=== PATIENT | female | born 1970 | race African-American/Black ===

== ENCOUNTER → 2016-10-12 | Outpatient (CLI) | payer BC ==
--- NOTE | 2016-10-12 15:43 | EKG REPORT ---
SEVERITY:- ABNORMAL ECG - SINUS RHYTHM PROBABLE LEFT VENTRICULAR HYPERTROPHY : Confirmed by: Rhonda Pabon 12-Oct-2016 15:42:48
== END ==
LOC: OD 11:13
PROVIDERS: ATTEND Family Medicine
DX: R07.2 Precordial pain (principal)
CPT/HCPCS: 93005; 93010

== ENCOUNTER 2017-10-26 14:14 | Inpatient (IN) | payer SELFPAY ==
--- NOTE | 2017-10-26 14:19 | ER Document Report ---
ED Skin Rash/Insect Bite/Abscs - General Stated Complaint: POSSIBLE ABSCESS Time Seen by Provider: 10/26/17 14:18 Notes: 47-year-old diabetic, hypertensive patient with a 3 day history of worsening abscess in the suprapubic region. Family states that it has been draining. Now turning green and having extreme foul odor. Patient became confused as well. Heart rate was elevated. Home blood sugar readings were "high". Fever at home as well. Family initially thought that her blood sugar was low so they have been giving her sugary sweets over the last couple of days up until today when they realized it was high and they gave her her regular dose of Lantus. Patient normally alert a and O 4 active. TRAVEL OUTSIDE OF THE [place] IN LAST 30 DAYS: No - HPI Patient complains to provider of: Skin rash/lesion, Tender/swollen area Onset/Duration: Gradual, Worse Quality of pain: Burning Severity: Moderate Pain Level: 3 Skin Character: Abscess - Related Data Allergies/Adverse Reactions: No Known Allergies Allergy (Verified 08/20/16 07:50) Past Medical History - General Information source: Patient, Relative - Social History Smoking Status: Never Smoker Cigarette use (# per day): No Smoking Education Provided: No Drug Abuse: None Lives with: Family Family History: Reviewed & Not Pertinent - Past Medical History Cardiac Medical History: Reports: Hx Congestive Heart Failure, Hx Heart Attack, Hx Hypertension Endocrine Medical History: Reports: Hx Diabetes Mellitus Type 2 Past Surgical History: Reports: Hx Section, Hx Cholecystectomy, Hx Hysterectomy Review of Systems - Review of Systems Constitutional: Fever EENT: No symptoms reported Cardiovascular: No symptoms reported Respiratory: No symptoms reported Gastrointestinal: No symptoms reported Genitourinary: See HPI, Other - Abscess left suprapubic area Female Genitourinary: No symptoms reported Musculoskeletal: No symptoms reported Skin: See HPI, Other - Large abscess left lower abdomen/left mons pubis area Hematologic/Lymphatic: No symptoms reported Neurological/Psychological: Confusion Physical Exam - Vital signs Interpretation: Tachycardic - General General appearance: Appears well, Alert - HEENT Head: Normocephalic, Atraumatic Eyes: Normal Pupils: PERRL Mucous membranes: Dry - Respiratory Respiratory status: No respiratory distress Chest status: Nontender Breath sounds: Normal Chest palpation: Normal - Cardiovascular Rhythm: Tachycardia Heart sounds: Normal auscultation Murmur: No - Abdominal Inspection: Other - Is a large necrotic abscess to the left mons pubis area. Necrotic with draining and foul odor. Very tender to the touch. Slight green tinge to the skin. Distension: No distension Bowel sounds: Normal Tenderness: Nontender Organomegaly: No organomegaly - Back Back: Normal, Nontender - Extremities General upper extremity: Normal inspection, Nontender, Normal color, Normal ROM , Normal temperature General lower extremity: Normal inspection, Nontender, Normal color, Normal ROM , Normal temperature, Normal weight bearing. No: Ray's sign - Neurological Neuro grossly intact: Yes Cognition: Normal Orientation: AAOx4 Dowell Coma Scale Eye Opening: Spontaneous Dowell Coma Scale Verbal: Oriented Dowell Coma Scale Motor: Obeys Commands Dowell Coma Scale Total: 15 Speech: Normal Motor strength normal: LUE, RUE, LLE, RLE Sensory: Normal - Psychological Associated symptoms: Normal affect, Normal mood - Skin Skin Temperature: Warm Skin Moisture: Dry Skin Color: Other - Abscess to the left superior mons pubic area Course - Re-evaluation Re-evalutation: 10/26/17 16:04 Patient with diabetes. Blood sugar level rate is high. Necrotic lesion left lower abdomen/suprapubic area. Appears to be gangrene versus necrotizing fasciitis. Patient will need surgical intervention. Giving IV fluid boluses, antibiotics, insulin and insulin drip. Every hour Accu-Cheks. 10/26/17 16:32 Consulted with the surgeon who is comfortable taking the patient as long as the hospitalist is comfortable managing patient afterwards. Awaiting callback from hospitalist at this time. Surgeon recommends adding clindamycin IV as well - Laboratory Result Diagrams: 10/26/17 14:26 10/26/17 14:26 Laboratory results interpreted by me: 10/26/17 10/26/17 10/26/17 14:26 14:26 14:26 MCH 25.9 L MCHC 31.5 L RDW 15.6 H Band Neutrophils % 7 H PT 16.8 H VBG pH Sodium 131.0 L Chloride 93 L BUN 42 H Creatinine 2.07 H Est GFR ( Amer) 31 L Est GFR (Non-Af Amer) 25 L Glucose 882 H* Lactic Acid Direct Bilirubin 0.6 H Alkaline Phosphatase 200 H Total Protein 5.6 L Albumin 2.8 L 10/26/17 10/26/17 14:26 14:51 MCH MCHC RDW Band Neutrophils % PT VBG pH 7.26 L Sodium Chloride BUN Creatinine Est GFR ( Amer) Est GFR (Non-Af Amer) Glucose Lactic Acid 3.2 H Direct Bilirubin Alkaline Phosphatase Total Protein Albumin - EKG Interpretation by Me EKG shows normal: Sinus rhythm, Intervals, QRS Complexes, ST-T Waves [place]/QRS: Left axis deviation When compared to previous EKG there are: No significant change Critical Care Note - Critical Care Note Total time excluding time spent on procedures (mins): 60 Comments: Hyperglycemia, sepsis, consultation with specialists Discharge - Discharge Clinical Impression: Perineal abscess, Sepsis affecting skin, Hyperglycemia, Acidosis, lactic Condition: Serious Disposition: ADMITTED INPATIENT Admitting Provider: Hospitalist Unit Admitted: IMCU - [facility] Referrals: MARIBEL SAN DO [Primary Care Provider] - Follow up as needed
[2017-10-26] MEDS ORDERED: VANCOMYCIN HCL INJ 1000 MG VIAL IV ONE (15:13)
[2017-10-26 15:14] LABS: VENOUS BLOOD BASE EXCESS -3.9 mmol/L; VENOUS BLOOD HCO3 23.8 mmol/L (20-32); VENOUS BLOOD PCO2 54.9 mmHg (35-63); VENOUS BLOOD PH 7.26 (7.30-7.42)
[2017-10-26] MEDS ORDERED: CEFTRIAXONE 2 GM/D5W RTU 2 GM/50 ML RTUPB IV ONE (15:14)
[2017-10-26] MEDS ORDERED: INSULIN REG, HUMAN 100 UNIT/ML 3 ML VIAL (PYX) IV ONE (15:15)
[2017-10-26 15:18] LABS: INTERNATIONAL RATION (INR) 1.28; PROTHROMBIN TIME 16.8 SEC (11.4-15.4)
[2017-10-26 15:19] LABS: ALANINE AMINOTRANSFERASE 27 U/L (9-52); ALBUMIN 2.8 g/dL (3.5-5.0); ALKALINE PHOSPHATASE 200 U/L (38-126); ANION GAP 13 (5-19); ASPARTATE AMINO TRANSFERASE 15 U/L (14-36); BILIRUBIN,DIRECT 0.6 mg/dL (0.0-0.4); BILIRUBIN,TOTAL 0.7 mg/dL (0.2-1.3); BLOOD UREA NITROGEN 42 mg/dL (7-20); CALCIUM 9.9 mg/dL (8.4-10.2); CARBON DIOXIDE 25 mmol/L (22-30); CHLORIDE 93 mmol/L (98-107); POTASSIUM 4.2 mmol/L (3.6-5.0); TOTAL PROTEIN 5.6 g/dL (6.3-8.2)
[2017-10-26] MEDS: NORMAL SALINE 1000 ML 1,000 ML IV PRN ×2 (15:21→16:29)
[2017-10-26 15:32] LABS: GLUCOSE 882 mg/dL (75-110)
[2017-10-26 15:42] LABS: HEMOGLOBIN 12.6 g/dL (12.0-15.5); MEAN CORPUSCULAR HEMOGLOBIN 25.9 pg (27.0-33.4); MEAN CORPUSCULAR HGB CONC 31.5 g/dL (32.0-36.0); MEAN CORPUSCULAR VOLUME 82 fl (80-97); PLATELET COUNT 168 10^3/uL (150-450); RED BLOOD COUNT 4.86 10^6/uL (3.72-5.28); RED CELL DISTRIBUTION WIDTH 15.6 % (11.5-14.0); WHITE BLOOD COUNT 10.3 10^3/uL (4.0-10.5)
[2017-10-26] MEDS ORDERED: DEXTROSE 50%-WATER 25 GM/50 ML DISP.SYRIN IV PRN ×2 (15:59)
[2017-10-26] MEDS ORDERED: NORMAL SALINE 100 ML with INSULIN REGULAR, HUMAN 100 UNIT IV PRN ×4 (15:59→20:00)
[2017-10-26] MEDS ORDERED: DEXTROSE 40% GEL 15 GM TUBE PO PRN ×2 (15:59)
[2017-10-26] MEDS ORDERED: GLUCAGON,HUMAN RECOMB 1 MG INJ IM PRN (15:59)
[2017-10-26 16:14] LABS: ABSOLUTE LYMPHOCYTES# (MANUAL) 1.8 10^3/uL (0.5-4.7); ABSOLUTE MONOCYTES # (MANUAL) 0.4 10^3/uL (0.1-1.4); ABSOLUTE NEUTROPHILS# (MANUAL) 8.1 10^3/uL (1.7-8.2); BAND NEUTROPHILS % (MANUAL) 7 % (3-5); BASOPHILS % (MANUAL) 0 % (0-2); EOSINOPHILS % (MANUAL) 0 % (0-6); LYMPHOCYTES % (MANUAL) 17 % (13-45); MONOCYTES % (MANUAL) 4 % (3-13); NUCLEATED RED BLOOD CELLS 1 /100 WBC (0); SEGMENTED NEUTROPHILS % (MAN) 72 % (42-78); TOTAL CELLS COUNTED 100; TOXIC GRANULATION 1+
[2017-10-26 16:16] LABS: BURR CELLS 2+; PLATELET COMMENT ADEQUATE; PLATELET GIANT PRESENT; PLATELET LARGE PRESENT; POIKILOCYTOSIS 2+; POLYCHROMASIA SLIGHT
--- NOTE | 2017-10-26 16:32 | RADIOLOGY REPORT (SQ) ---
EXAM DESCRIPTION: PELVIS AP COMPLETED DATE/TIME: 10/26/2017 4:02 pm REASON FOR STUDY: forniers gangrene mons pubis COMPARISON: None. NUMBER OF VIEWS: One view TECHNIQUE: AP Pelvis LIMITATIONS: None. FINDINGS: MINERALIZATION: Normal. HIPS: No acute fracture or dislocation. No worrisome bone lesions. PELVIS AND SACRUM: No acute fracture or dislocation. No worrisome bone lesions. PUBIS AND ISCHIUM: No acute fracture. LOWER LUMBAR SPINE: No significant findings as visualized. SOFT TISSUES: Heterogeneous density is identified in the soft tissues at the level of the perineum an d in the upper thigh on the left consistent with air in the soft tissues. This presumably is related to an infectious process. Clinical correlation is recommended OTHER: No other significant finding. IMPRESSION: Heterogeneous density is identified in the soft tissues at the level of the perineum and in the upper thigh on the left consistent with air in the soft tissues. This presumably is related to an infectious process. Clinical correlation is recommended. Other findings as noted above TECHNICAL DOCUMENTATION: JOB ID: [id number] [employer]- All Rights Reserved
[2017-10-26] MEDS ORDERED: CLINDAMYCIN 900 MG/D5W RTU 50 ML IV ONE (16:33)
--- NOTE | 2017-10-26 16:41 | EKG REPORT ---
SEVERITY:- ABNORMAL ECG - SINUS RHYTHM PROBABLE LEFT ATRIAL ABNORMALITY CONSIDER ANTEROSEPTAL INFARCT : Confirmed by: Rhonda Pabon 26-Oct-2017 16:41:29
[2017-10-26] MEDS ORDERED: ONDANSETRON HCL INJ/PF 4 MG/2 ML SDV IV PRN (17:11)
[2017-10-26] MEDS ORDERED: NORMAL SALINE 1000 ML 1,000 ML IV PRN (17:11)
[2017-10-26] MEDS ORDERED: ACETAMINOPHEN 325 MG TABLET PO PRN (17:11)
[2017-10-26] MEDS ORDERED: IPRATROPIUM/ALBUTEROL 0.5-2.5 MG/3 ML AMPUL NEB PRN (17:11)
[2017-10-26] MEDS ORDERED: ONDANSETRON 4 MG TAB.RAPDIS PO PRN (17:11)
--- NOTE | 2017-10-26 17:25 | PDOC CONSULTATION ---
History of Present Illness Admission Date/PCP: MARIBEL SAN DO History of Present Illness: MADDIE LAWSON is a 47 year old female with diabetes who has noted a suprapubic abscess for the past 3 weeks. She began to have worsening of this abscess with discoloration and foul-smelling drainage. She was having fevers as well. She was apparently active until today when she had generalized malaise and weakness and she was subsequently brought in to the emergency room. She has been very drowsy but arousable. Patient was noted with mild tachycardia and blood glucose of 800. She was given IV fluids and IV insulin. Past Medical History Cardiac Medical History: Reports: Congestive Heart Failure, Myocardial Infarction, Hypertension Endocrine Medical History: Reports: Diabetes Mellitus Type 2 Past Surgical History Past Surgical History: Reports: Section, Cholecystectomy, Hysterectomy Social History Lives with: Family Smoking Status: Never Smoker Family History Family History: Reviewed & Not Pertinent Parental Family History Reviewed: No Children Family History Reviewed: No Sibling(s) Family History Reviewed.: No Medication/Allergy Allergies/Adverse Reactions: No Known Allergies Allergy (Verified 08/20/16 07:50) Physical Exam Vital Signs: Temp Pulse Resp BP Pulse Ox 14 118/76 96 10/26/17 17:00 10/26/17 16:00 10/26/17 17:00 Intake & Output 10/25/17 10/26/17 10/27/17 06:59 06:59 06:59 Weight 175.3 kg General appearance: PRESENT: morbidly obese, other - Lethargic but arousable. Obeys commands. Not able to provide a good history. Eye exam: PRESENT: conjunctiva pink Neck exam: PRESENT: other - Supple. Respiratory exam: PRESENT: clear to auscultation ashok Cardiovascular exam: PRESENT: tachycardia GI/Abdominal exam: PRESENT: other - Soft, morbidly obese and difficult to tell whether she is distended. At the suprapubic region she has a wide area of dark discoloration with blistering of the skin. With tenderness to palpation and underlying fluctuance. This process does not appear to extend beyond the groin crease. And it does not appear to extend above the umbilicus. Results Laboratory Results: 10/26/17 14:26 10/26/17 14:26 10/26/17 10/26/17 10/26/17 14:26 14:26 14:26 WBC 10.3 RBC 4.86 Hgb 12.6 Hct 40.0 MCV 82 MCH 25.9 L MCHC 31.5 L RDW 15.6 H Plt Count 168 Seg Neutrophils % Not Reportable Lymphocytes % Not Reportable Monocytes % Not Reportable Eosinophils % Not Reportable Basophils % Not Reportable Absolute Neutrophils Not Reportable Absolute Lymphocytes Not Reportable Absolute Monocytes Not Reportable Absolute Eosinophils Not Reportable Absolute Basophils Not Reportable VBG pH VBG pCO2 VBG HCO3 VBG Base Excess Sodium 131.0 L Potassium 4.2 Chloride 93 L Carbon Dioxide 25 Anion Gap 13 BUN 42 H Creatinine 2.07 H Est GFR ( Amer) 31 L Est GFR (Non-Af Amer) 25 L Glucose 882 H* Lactic Acid 3.2 H Calcium 9.9 Total Bilirubin 0.7 AST 15 ALT 27 Alkaline Phosphatase 200 H Total Protein 5.6 L Albumin 2.8 L 10/26/17 14:51 WBC RBC Hgb Hct MCV MCH MCHC RDW Plt Count Seg Neutrophils % Lymphocytes % Monocytes % Eosinophils % Basophils % Absolute Neutrophils Absolute Lymphocytes Absolute Monocytes Absolute Eosinophils Absolute Basophils VBG pH 7.26 L VBG pCO2 54.9 VBG HCO3 23.8 VBG Base Excess -3.9 Sodium Potassium Chloride Carbon Dioxide Anion Gap BUN Creatinine Est GFR ( Amer) Est GFR (Non-Af Amer) Glucose Lactic Acid Calcium Total Bilirubin AST ALT Alkaline Phosphatase Total Protein Albumin Impressions: Pelvis X-Ray 10/26/17 15:14 IMPRESSION: Heterogeneous density is identified in the soft tissues at the level of the perineum and in the upper thigh on the left consistent with air in the soft tissues. This presumably is related to an infectious process. Clinical correlation is recommended. Other findings as noted above Assessment & Plan - Diagnosis (1) Suprapubic abscess Is this a current diagnosis for this admission?: Yes Plan: Patient with evidence of sepsis. Unsure whether she has necrotizing fasciitis. I will take the patient to the operating room for debridement. I have discussed with the risk and benefits of the procedure including risk of bleeding infection prolonged wound healing and possibility of requiring additional surgeries. He understands and agrees to proceed. Will resuscitate patient with IV fluids, IV antibiotics and get her glucose down to reasonable numbers prior to surgery.
[2017-10-26] MEDS ORDERED: VANCOMYCIN HCL 0 MG in DEXTROSE 5%-WATER 250 ML IV NR (17:30)
[2017-10-26] MEDS ORDERED: MORPHINE SULFATE 10 MG/ML INJ IV PRN (17:33)
--- NOTE | 2017-10-26 17:48 | PDOC H&P ---
History of Present Illness Admission Date/PCP: MARIBEL SAN DO Patient complains of: Abscess in the suprapubic region. History of Present Illness: MADDIE LAWSON is a 47 year old female who has a history of diabetes, hypertension, hypothyroidism as well as coronary artery disease who presents with a three-week history of a boil on her suprapubic area. Over the last 3 weeks is gotten worse over the last 2 days began to drain purulent material. She has had some fevers and chills for the last 2 days. the patient's sister reports that she recently took a course of prednisone for her arthritis. The patient is confused at this time and she does have a blood sugar of over 800. She has had complaints of pain and over the last several days has had worsening smell from the purulent drainage from her suprapubic area. The patient when she presented was noted to have tachycardia and ultimately low blood pressures that responded to IV fluids consistent with sepsis. Past Medical History Cardiac Medical History: Reports: Congestive Heart Failure, Coronary Artery Disease, Myocardial Infarction, Hypertension Pulmonary Medical History: Reports: None EENT Medical History: Reports: None Neurological Medical History: Reports: None Endocrine Medical History: Reports: Diabetes Mellitus Type 2, Hypothyroidism Renal/ Medical History: Reports: None Malignancy Medical History: Reports: None GI Medical History: Reports: None Musculoskeltal Medical History: Reports: Arthritis Skin Medical History: Reports: None Psychiatric Medical History: Reports: None Traumatic Medical History: Reports: None Hematology: Reports: None Infectious Medical History: Reports: None Past Surgical History Past Surgical History: Reports: Section, Cholecystectomy, Hysterectomy Social History Information Source: Relative Lives with: Family Smoking Status: Never Smoker Frequency of Alcohol Use: None Hx Recreational Drug Use: No Drugs: None Hx Prescription Drug Abuse: No - Advance Directive Resuscitation Status: Full Code Surrogate healthcare decision maker:: Her Family History Family History: Father at age 57 from coronary artery disease. Mother 72 and alive. She has hypertension, diabetes mellitus, coronary artery disease. Parental Family History Reviewed: Yes Children Family History Reviewed: No Sibling(s) Family History Reviewed.: No Medication/Allergy Allergies/Adverse Reactions: No Known Allergies Allergy (Verified 08/20/16 07:50) Review of Systems Constitutional: PRESENT: chills, fever(s). ABSENT: headache(s), weight gain, weight loss Eyes: ABSENT: visual disturbances Ears: ABSENT: hearing changes Cardiovascular: ABSENT: chest pain, dyspnea on exertion, edema, orthropnea, palpitations Respiratory: ABSENT: cough, hemoptysis Gastrointestinal: ABSENT: abdominal pain, constipation, diarrhea, hematemesis, hematochezia, nausea, vomiting Musculoskeletal: ABSENT: joint swelling Integumentary: PRESENT: as per HPI Neurological: PRESENT: confusion, weakness Endocrine: PRESENT: polydipsia, polyuria Hematologic/Lymphatic: ABSENT: easy bleeding, easy bruising Physical Exam Vital Signs: Temp Pulse Resp BP Pulse Ox 14 118/76 96 10/26/17 17:00 10/26/17 16:00 10/26/17 17:00 Intake & Output 10/25/17 10/26/17 10/27/17 06:59 06:59 06:59 Weight 175.3 kg General appearance: PRESENT: no acute distress, morbidly obese Head exam: PRESENT: atraumatic, normocephalic Eye exam: PRESENT: conjunctiva pink, EOMI, PERRLA. ABSENT: scleral icterus Ear exam: PRESENT: normal external ear exam Mouth exam: PRESENT: dry mucosa Neck exam: ABSENT: carotid bruit, JVD, lymphadenopathy, thyromegaly Respiratory exam: PRESENT: clear to auscultation ashok. ABSENT: rales, rhonchi, wheezes Cardiovascular exam: PRESENT: RRR. ABSENT: diastolic murmur, rubs, systolic murmur Pulses: PRESENT: normal dorsalis pedis pul Vascular exam: PRESENT: normal capillary refill GI/Abdominal exam: PRESENT: normal bowel sounds, soft, tenderness - Tenderness in the suprapubic area. ABSENT: distended, guarding, mass, organolmegaly, rebound Rectal exam: PRESENT: deferred Extremities exam: ABSENT: calf tenderness, clubbing, pedal edema Neurological exam: PRESENT: altered, awake, oriented to person, oriented to place, oriented to time, oriented to situation, CN II-XII grossly intact. ABSENT: motor sensory deficit Psychiatric exam: PRESENT: flat affect Skin exam: PRESENT: erythema - In the left suprapubic area, other - Erythematous dark colored area of the suprapubic area worse on the left. Results Laboratory Results: 10/26/17 14:26 10/26/17 14:26 10/26/17 10/26/17 10/26/17 14:26 14:26 14:26 WBC 10.3 RBC 4.86 Hgb 12.6 Hct 40.0 MCV 82 MCH 25.9 L MCHC 31.5 L RDW 15.6 H Plt Count 168 Seg Neutrophils % Not Reportable Lymphocytes % Not Reportable Monocytes % Not Reportable Eosinophils % Not Reportable Basophils % Not Reportable Absolute Neutrophils Not Reportable Absolute Lymphocytes Not Reportable Absolute Monocytes Not Reportable Absolute Eosinophils Not Reportable Absolute Basophils Not Reportable VBG pH VBG pCO2 VBG HCO3 VBG Base Excess Sodium 131.0 L Potassium 4.2 Chloride 93 L Carbon Dioxide 25 Anion Gap 13 BUN 42 H Creatinine 2.07 H Est GFR ( Amer) 31 L Est GFR (Non-Af Amer) 25 L Glucose 882 H* Lactic Acid 3.2 H Calcium 9.9 Total Bilirubin 0.7 AST 15 ALT 27 Alkaline Phosphatase 200 H Total Protein 5.6 L Albumin 2.8 L 10/26/17 14:51 WBC RBC Hgb Hct MCV MCH MCHC RDW Plt Count Seg Neutrophils % Lymphocytes % Monocytes % Eosinophils % Basophils % Absolute Neutrophils Absolute Lymphocytes Absolute Monocytes Absolute Eosinophils Absolute Basophils VBG pH 7.26 L VBG pCO2 54.9 VBG HCO3 23.8 VBG Base Excess -3.9 Sodium Potassium Chloride Carbon Dioxide Anion Gap BUN Creatinine Est GFR ( Amer) Est GFR (Non-Af Amer) Glucose Lactic Acid Calcium Total Bilirubin AST ALT Alkaline Phosphatase Total Protein Albumin Impressions: Pelvis X-Ray 10/26/17 15:14 IMPRESSION: Heterogeneous density is identified in the soft tissues at the level of the perineum and in the upper thigh on the left consistent with air in the soft tissues. This presumably is related to an infectious process. Clinical correlation is recommended. Other findings as noted above Assessment & Plan - Diagnosis (1) Sepsis affecting skin Is this a current diagnosis for this admission?: Yes Plan: The patient had tachycardia, fever and relatively low blood pressure. This has responded IV fluids. She appears to have an abscess versus gangrene of the suprapubic area. Will treat with vancomycin, Zosyn and clindamycin. Surgery has been consulted. Blood cultures have been obtained. (2) Suprapubic abscess Is this a current diagnosis for this admission?: Yes Plan: We will treat with the antibiotics as per above. General surgery has been consulted and will be taking the patient to the operating room tonight. (3) Diabetes Is this a current diagnosis for this admission?: Yes Plan: The patient has blood sugars over 800 but does not have diabetic ketoacidosis. Patient has been started on insulin drip and will continue with that until we can get her blood sugars down to more reasonable level. Anesthesia has requested that we have the blood sugars less than 400 prior to surgery. She has IV fluids going aggressively. We will also give Lantus 60 units subcu now. The patient normally uses 36 units of Lantus daily. (4) Hypertension Is this a current diagnosis for this admission?: Yes Plan: The patient normally takes valsartan HCTZ, and clonidine. Will hold those for now given her infection and will restart those back when her blood pressures start to become elevated. (5) Hypothyroidism Is this a current diagnosis for this admission?: Yes Plan: We will continue with her outpatient Synthroid dose. - Time Time Spent: 50 to 70 Minutes - Inpatient Certification Medical Necessity: Need For IV Fluids, Need for IV Antibiotics
[2017-10-26] MEDS ORDERED: INSULIN REG, HUMAN 100 UNIT/ML 3 ML VIAL (PYX) ONE ×2 (18:32→21:45)
[2017-10-26 21:16] LABS: ANION GAP 13 (5-19); BLOOD UREA NITROGEN 41 mg/dL (7-20); CALCIUM 9.3 mg/dL (8.4-10.2); CARBON DIOXIDE 22 mmol/L (22-30); CHLORIDE 99 mmol/L (98-107); SODIUM 133.6 mmol/L (137-145)
[2017-10-26 21:31] LABS: GLUCOSE 616 mg/dL (75-110); POTASSIUM 4.3 mmol/L (3.6-5.0)
[2017-10-26] MEDS: CLINDAMYCIN 600 MG/D5W RTU 600 MG/50 ML RTUPB IV SCH (21:49)
[2017-10-26] MEDS ORDERED: BUPIVACAINE HCL 0.25 % INJ/PF (2.5 MG/1 ML) 30 ML VIAL ONE (21:50)
[2017-10-26] MEDS ORDERED: HYDROMORPHONE HCL INJ/PF 2 MG/ML AMPULE ONE ×2 (21:54)
[2017-10-26] MEDS: PIPERACILLIN SODIUM/TAZOBACTAM 3.375 GM in NORMAL SALINE 100 ML IV SCH (21:54)
[2017-10-26] MEDS ORDERED: PROPOFOL INJ 200 MG/20 ML VIAL IV ONE (21:54)
[2017-10-26] MEDS ORDERED: EPHEDRINE SULFATE INJ 50 MG/1 ML AMPULE ONE (21:54)
[2017-10-26] MEDS ORDERED: FAMOTIDINE 20 MG TABLET PO SCH (22:00)
[2017-10-26] MEDS ORDERED: INSULIN GLARGINE,HUM.REC.ANLOG 300 UNIT/3 ML INSULN.PEN SUBCUT SCH ×2 (22:00)
[2017-10-27] MEDS ORDERED: MIDAZOLAM 2 MG/2 ML INJ ONE ×2 (00:36→10:49)
--- NOTE | 2017-10-27 00:59 | Operative Report ---
Operative Report DATE OF SURGERY: 10/27/17 PREOPERATIVE DIAGNOSIS: Suprapubic abscess, severe hyperglycemia with critical need for central venous access POSTOPERATIVE DIAGNOSIS: Necrotizing fasciitis. severe hyperglycemia, critical need for central venous access OPERATION: Excisional debridement of suprapubic region and left upper thigh. Right subclavian triple-lumen central venous catheter placement SURGEON: JUAN NATARAJAN ANESTHESIA: GA TISSUE REMOVED OR ALTERED: Necrotic skin excised from the suprapubic region and the left upper thigh. Pus laden fat and fascia excised and submitted to microbiology for Gram stain and culture. COMPLICATIONS: None ESTIMATED BLOOD LOSS: 200 cc INTRAOPERATIVE FINDINGS: Pus laden fat with overlying necrotic skin and necrotic fascia of the left adductor muscle. About 13 x 4 cm region of skin necrosis at the left suprapubic region. And about 13 x 3 cm region of skin necrosis at the left upper thigh just below the groin crease. Extensive subcutaneous fat necrosis and fascial necrosis tracking from the lower abdomen and along the left adductor muscle. PROCEDURE: Informed consent was obtained. Patient was brought to the operating room placed on the operating table in supine position. After satisfactory induction of general anesthesia patient's right chest and neck were prepped and draped in usual sterile fashion. The right subclavian vein was entered and the blood aspirated was dark and nonpulsatile. Guidewire was placed inducing ventricular ectopy which stopped upon withdrawal of the guidewire. triple-lumen central venous catheter was placed via the Seldinger technique. It withdrew blood and flushed easily. It was sutured in place. Dressings were applied Patient was placed in a lithotomy position and her lower abdomen and perineum and upper thigh were prepped and draped in usual sterile fashion. Patient was morbidly obese and upon retraction of her pannus it became evident that she had a necrotic process involving the left suprapubic region extending to the left vulva region as well as necrotic process at the upper inner thigh just below her groin crease. The necrotic region of her left suprapubic region extending to the mons and left vulva was excised using electrocautery. I excised further back peripherally until I reached viable skin. There was underlying extensive pus laden necrotic fat that was excised. Dissection was carried down deeper where I encountered dusky jenkins pus laden fascia that was sharply debrided. The process extended to the left inner upper thigh. The process also extended to the left para vulvar region where there was a small about 2 x 1 cm region of skin necrosis which was sharply excised going to viable edges. There was region of necrotic skin at the inner upper thigh that was excised using scissors as well as electrocautery. Again underlying this necrotic skin was pus laden necrotic fat that was excised. The necrotic tissue was followed down to the adductor muscle fascia that was necrotic as well. All of the necrotic tissue was sharply debrided a thorough exploration was performed to make sure that it was not tracking further down the leg nor further up the abdomen. Bleeding points were controlled with electrocautery. All necrotic tissue was debrided. The wound was copiously irrigated
[2017-10-27] MEDS ORDERED: NORMAL SALINE 1000 ML 1,000 ML IV PRN (01:04)
[2017-10-27] MEDS ORDERED: PHARMACY COMMUNICATION ORDER MC NR (01:15)
[2017-10-27] MEDS ORDERED: PROPOFOL 100 ML IV ONE (01:24)
[2017-10-27] MEDS ORDERED: PROPOFOL 100 ML IV PRN (01:44)
[2017-10-27] MEDS ORDERED: DEXTROSE 40% GEL 15 GM TUBE NG PRN ×2 (02:00)
[2017-10-27] MEDS ORDERED: ONDANSETRON 4 MG TAB.RAPDIS NG PRN (02:00)
--- NOTE | 2017-10-27 02:00 | PDOC PROGRESS REPORT ---
Subjective Progress Note for:: 10/27/17 Subjective:: Intubated and sedated Reason For Visit: GANGRENE OF PANNUS Physical Exam Vital Signs: Temp Pulse Resp BP Pulse Ox 21 H 123/65 100 10/26/17 21:50 10/26/17 19:01 10/26/17 21:50 Intake & Output 10/25/17 10/26/17 10/27/17 06:59 06:59 06:59 Intake Total 2500 Output Total 500 Balance 2000 General appearance: PRESENT: no acute distress Respiratory exam: PRESENT: clear to auscultation ashok Cardiovascular exam: PRESENT: tachycardia GI/Abdominal exam: PRESENT: other - Soft and nondistended. Her left groin and suprapubic region dressings are intact. There is no erythema nor induration in the surrounding regions. No blistering or discoloration of her left leg. Results Laboratory Results: 10/26/17 20:45 10/26/17 20:45 Sodium 133.6 L Potassium 4.3 Chloride 99 Carbon Dioxide 22 Anion Gap 13 BUN 41 H Creatinine 1.98 H Est GFR ( Amer) 32 L Est GFR (Non-Af Amer) 27 L Glucose 616 H* Calcium 9.3 Impressions: Pelvis X-Ray 10/26/17 15:14 IMPRESSION: Heterogeneous density is identified in the soft tissues at the level of the perineum and in the upper thigh on the left consistent with air in the soft tissues. This presumably is related to an infectious process. Clinical correlation is recommended. Other findings as noted above Assessment & Plan - Diagnosis (1) Suprapubic abscess Is this a current diagnosis for this admission?: Yes (2) Necrotizing fasciitis Is this a current diagnosis for this admission?: Yes Plan: Status post extensive debridement. Will keep patient intubated. Continue broad -spectrum antibiotics. Await culture results. Will reevaluate the wound tomorrow. Defer to hospitalist for medical management of her hyperglycemia.
--- NOTE | 2017-10-27 02:05 | RADIOLOGY REPORT (SQ) ---
EXAM DESCRIPTION: CHEST SINGLE VIEW CLINICAL HISTORY: 47 years, Female, check line placement COMPARISON: August 20, 2016 NUMBER OF VIEWS: 1 LIMITATIONS: None. FINDINGS: Moderate lung volume, mild enlargement of the cardiac silhouette, small streakiness of the right upper lobe, pulmonary vascular congestion, adequate appearing endotracheal tube, likely adequate enteric tube obscured distally, right subclavian central line tip at cavoatrial junction, no pneumothorax, and mild osteoarthritis. IMPRESSION: Small atelectasis-pneumonia right upper lobe. Lines and tubes. 2010 [employer] All Rights Reserved
[2017-10-27 02:31] LABS: ANION GAP 11 (5-19); BLOOD UREA NITROGEN 40 mg/dL (7-20); CALCIUM 8.7 mg/dL (8.4-10.2); CARBON DIOXIDE 22 mmol/L (22-30); CHLORIDE 106 mmol/L (98-107); GLUCOSE 332 mg/dL (75-110); POTASSIUM 3.9 mmol/L (3.6-5.0)
[2017-10-27 02:34] LABS: HEMATOCRIT 33.2 % (36.0-47.0); HEMOGLOBIN 10.7 g/dL (12.0-15.5); MEAN CORPUSCULAR HEMOGLOBIN 25.5 pg (27.0-33.4); MEAN CORPUSCULAR HGB CONC 32.3 g/dL (32.0-36.0); MEAN CORPUSCULAR VOLUME 79 fl (80-97); PLATELET COUNT 148 10^3/uL (150-450); RED CELL DISTRIBUTION WIDTH 15.9 % (11.5-14.0); WHITE BLOOD COUNT 12.5 10^3/uL (4.0-10.5)
[2017-10-27] MEDS ORDERED: INFLUENZA ADLT QUAD (36MOS+) 2017-18 VAC 0.5 ML SYR IM PRN (02:39)
--- NOTE | 2017-10-27 02:47 | RADIOLOGY REPORT (SQ) ---
EXAM DESCRIPTION: KUB/ABDOMEN (SINGLE VIEW) CLINICAL HISTORY: 47 years, Female, Check Placement of NG Tube COMPARISON: CR, chest, same day. NUMBER OF VIEWS: 1. LIMITATIONS: Targeted left upper abdomen radiograph. FINDINGS: Tip and proximal port of an enteric tube overlie the left paracentral abdomen appearing adequate. IMPRESSION: Enteric tube. 2010 [employer]- All Rights Reserved
[2017-10-27] MEDS: PIPERACILLIN SODIUM/TAZOBACTAM 3.375 GM in NORMAL SALINE 100 ML IV SCH ×3 (02:53→14:07)
[2017-10-27] MEDS: VANCOMYCIN HCL 1,000 MG in DEXTROSE 5%-WATER 250 ML IV SCH ×2 (03:27→14:07)
[2017-10-27 03:41] LABS: APPEARANCE,URINE CLOUDY; BILIRUBIN,URINE NEGATIVE (NEGATIVE); COLOR,URINE AMBER; GLUCOSE, URINE 50 mg/dL (NEGATIVE); KETONES,URINE NEGATIVE (NEGATIVE); LEUKOCYTE ESTERASE,URINE NEGATIVE (NEGATIVE); NITRITE,URINE NEGATIVE (NEGATIVE); PROTEIN,URINE 100 mg/dL (NEGATIVE); URINE SPECIFIC GRAVITY 1.019
[2017-10-27] MEDS: NORMAL SALINE 1000 ML 1,000 ML IV PRN ×2 (05:16→06:15)
[2017-10-27] MEDS ORDERED: LEVOTHYROXINE SODIUM 0.05 MG TABLET NG SCH (06:00)
[2017-10-27] MEDS: CLINDAMYCIN 600 MG/D5W RTU 600 MG/50 ML RTUPB IV SCH ×2 (06:00→14:08)
[2017-10-27 06:36] LABS: ARTERIAL BLOOD BASE EXCESS -5.5 mmol/L; ARTERIAL BLOOD FIO2 50%; ARTERIAL BLOOD H2CO3 1.44 mmol/L (1.05-1.35); ARTERIAL BLOOD HCO3 21.3 mmol/L (20-26); ARTERIAL BLOOD O2 SATURATION 97.8 % (94-98); ARTERIAL BLOOD PCO2 47.7 mmHg (35-45); ARTERIAL BLOOD PH 7.27 (7.35-7.45); ARTERIAL BLOOD PO2 120.2 mmHg (80-100); ARTERIAL BLOOD TOTAL CO2 22.8 mmol/L (21-25)
[2017-10-27 06:39] LABS: HEMATOCRIT 30.7 % (36.0-47.0); HEMOGLOBIN 9.8 g/dL (12.0-15.5); MEAN CORPUSCULAR HEMOGLOBIN 25.2 pg (27.0-33.4); MEAN CORPUSCULAR HGB CONC 32.1 g/dL (32.0-36.0); MEAN CORPUSCULAR VOLUME 79 fl (80-97); PLATELET COUNT 144 10^3/uL (150-450); RED CELL DISTRIBUTION WIDTH 15.7 % (11.5-14.0); WHITE BLOOD COUNT 12.5 10^3/uL (4.0-10.5)
[2017-10-27 06:49] LABS: ANION GAP 10 (5-19); BLOOD UREA NITROGEN 40 mg/dL (7-20); CALCIUM 8.1 mg/dL (8.4-10.2); CARBON DIOXIDE 21 mmol/L (22-30); CHLORIDE 108 mmol/L (98-107); GLUCOSE 222 mg/dL (75-110); MAGNESIUM 1.8 mg/dL (1.6-2.3)
[2017-10-27] MEDS ORDERED: INSULIN REG, HUMAN 100 UNIT/ML 3 ML VIAL (PYX) ONE (07:09)
[2017-10-27 07:39] LABS: ABSOLUTE LYMPHOCYTES# (MANUAL) 2.3 10^3/uL (0.5-4.7); ABSOLUTE MONOCYTES # (MANUAL) 1.1 10^3/uL (0.1-1.4); BAND NEUTROPHILS % (MANUAL) 8 % (3-5); BASOPHILS % (MANUAL) 0 % (0-2); EOSINOPHILS % (MANUAL) 1 % (0-6); LYMPHOCYTES % (MANUAL) 16 % (13-45); MONOCYTES % (MANUAL) 9 % (3-13); SEGMENTED NEUTROPHILS % (MAN) 64 % (42-78); TOTAL CELLS COUNTED 100
[2017-10-27 07:40] LABS: ANISOCYTOSIS SLIGHT
[2017-10-27 07:41] LABS: BURR CELLS 1+; HYPOCHROMASIA SLIGHT; PLATELET COMMENT DECREASED; POIKILOCYTOSIS 1+
--- NOTE | 2017-10-27 09:23 | PDOC PROGRESS REPORT ---
Subjective Progress Note for:: 10/27/17 Reason For Visit: GANGRENE OF PANNUS Physical Exam Vital Signs: Temp Pulse Resp BP Pulse Ox 99.7 F 116 H 22 H 101/61 100 10/27/17 08:00 10/27/17 08:00 10/27/17 08:00 10/27/17 08:00 10/27/17 08:00 Intake & Output 10/26/17 10/27/17 10/28/17 06:59 06:59 06:59 Intake Total 6248 Output Total 2745 45 Balance 3503 -45 Weight 166.7 kg Skin exam: PRESENT: other - lower abdominal pannus and left upper thigh wounds [ resent with foul smell, discolored skin edges and graysh subcutaneous fat Results Laboratory Results: 10/27/17 06:10 10/27/17 06:10 10/26/17 10/27/17 10/27/17 20:45 02:00 02:00 WBC 12.5 H RBC 4.20 Hgb 10.7 L Hct 33.2 L MCV 79 L MCH 25.5 L MCHC 32.3 RDW 15.9 H Plt Count 148 L Seg Neutrophils % Lymphocytes % Monocytes % Eosinophils % Basophils % Absolute Neutrophils Absolute Lymphocytes Absolute Monocytes Absolute Eosinophils Absolute Basophils Carbonic Acid HCO3/H2CO3 Ratio ABG pH ABG pCO2 ABG pO2 ABG HCO3 ABG O2 Saturation ABG Base Excess FiO2 Sodium 133.6 L 139.0 Potassium 4.3 3.9 Chloride 99 106 Carbon Dioxide 22 22 Anion Gap 13 11 BUN 41 H 40 H Creatinine 1.98 H 2.04 H Est GFR ( Amer) 32 L 31 L Est GFR (Non-Af Amer) 27 L 26 L Glucose 616 H* 332 H Lactic Acid Calcium 9.3 8.7 Magnesium Urine Color Urine Appearance Urine pH Ur Specific [place] Urine Protein Urine Glucose (UA) Urine Ketones Urine Blood Urine Nitrite Ur Leukocyte Esterase Urine WBC (Auto) Urine RBC (Auto) 10/27/17 10/27/17 10/27/17 02:50 06:10 06:10 WBC 12.5 H RBC 3.90 Hgb 9.8 L Hct 30.7 L MCV 79 L MCH 25.2 L MCHC 32.1 RDW 15.7 H Plt Count 144 L Seg Neutrophils % Not Reportable Lymphocytes % Not Reportable Monocytes % Not Reportable Eosinophils % Not Reportable Basophils % Not Reportable Absolute Neutrophils Not Reportable Absolute Lymphocytes Not Reportable Absolute Monocytes Not Reportable Absolute Eosinophils Not Reportable Absolute Basophils Not Reportable Carbonic Acid HCO3/H2CO3 Ratio ABG pH ABG pCO2 ABG pO2 ABG HCO3 ABG O2 Saturation ABG Base Excess FiO2 Sodium 139.0 Potassium 4.0 Chloride 108 H Carbon Dioxide 21 L Anion Gap 10 BUN 40 H Creatinine 1.98 H Est GFR ( Amer) 32 L Est GFR (Non-Af Amer) 27 L Glucose 222 H Lactic Acid Calcium 8.1 L Magnesium 1.8 Urine Color ANJELICA Urine Appearance CLOUDY Urine pH 5.0 Ur Specific [place] 1.019 Urine Protein 100 H Urine Glucose (UA) 50 H Urine Ketones NEGATIVE Urine Blood MODERATE H Urine Nitrite NEGATIVE Ur Leukocyte Esterase NEGATIVE Urine WBC (Auto) 17 Urine RBC (Auto) 2 10/27/17 10/27/17 06:10 06:10 WBC RBC Hgb Hct MCV MCH MCHC RDW Plt Count Seg Neutrophils % Lymphocytes % Monocytes % Eosinophils % Basophils % Absolute Neutrophils Absolute Lymphocytes Absolute Monocytes Absolute Eosinophils Absolute Basophils Carbonic Acid 1.44 H HCO3/H2CO3 Ratio 14:1 ABG pH 7.27 L ABG pCO2 47.7 H ABG pO2 120.2 H ABG HCO3 21.3 ABG O2 Saturation 97.8 ABG Base Excess -5.5 FiO2 50% Sodium Potassium Chloride Carbon Dioxide Anion Gap BUN Creatinine Est GFR ( Amer) Est GFR (Non-Af Amer) Glucose Lactic Acid 1.4 Calcium Magnesium Urine Color Urine Appearance Urine pH Ur Specific [place] Urine Protein Urine Glucose (UA) Urine Ketones Urine Blood Urine Nitrite Ur Leukocyte Esterase Urine WBC (Auto) Urine RBC (Auto) Impressions: Pelvis X-Ray 10/26/17 15:14 IMPRESSION: Heterogeneous density is identified in the soft tissues at the level of the perineum and in the upper thigh on the left consistent with air in the soft tissues. This presumably is related to an infectious process. Clinical correlation is recommended. Other findings as noted above Chest X-Ray 10/27/17 00:00 IMPRESSION: Small atelectasis-pneumonia right upper lobe. Lines and tubes. 2010 [employer]- All Rights Reserved KUB X-Ray 10/27/17 01:03 IMPRESSION: Enteric tube. 2010 [employer]- All Rights Reserved Assessment & Plan - Diagnosis (1) Necrotizing fasciitis Is this a current diagnosis for this admission?: Yes - Plan Summary Plan Summary: take back to surgery today for additional wide debridment of left upper thigh and abdominal pannus wounds Case and procedure discussed with patient's , he understands risks and procedure and decide to proceed
[2017-10-27] MEDS ORDERED: FAMOTIDINE 20 MG TABLET NG SCH (10:00)
[2017-10-27] MEDS: MORPHINE SULFATE 10 MG/ML INJ IV PRN ×2 (10:20→14:06)
--- NOTE | 2017-10-27 10:33 | PDOC CONSULTATION ---
Consultation Consult Date: 10/27/17 Attending physician:: JEREMIE JEAN Consult reason:: sepsis/resp failure History of Present Illness Admission Date/PCP: 10/26/17 17:28 MARIBEL SAN DO History of Present Illness: MADDIE LAWSON is a 47 year old female who has a history of diabetes, hypertension, hypothyroidism as well as coronary artery disease who presents with a three-week history of a boil on her suprapubic area. Over the last 3 weeks is gotten worse over the last 2 days began to drain purulent material. She has had some fevers and chills for the last 2 days. the patient's sister reports that she recently took a course of prednisone for her arthritis. The patient is confused at this time and she does have a blood sugar of over 800. She has had complaints of pain and over the last several days has had worsening smell from the purulent drainage from her suprapubic area. The patient when she presented was noted to have tachycardia and ultimately low blood pressures that responded to IV fluids consistent with sepsis. Past Medical History Cardiac Medical History: Reports: Congestive Heart Failure, Coronary Artery Disease, Myocardial Infarction, Hypertension Pulmonary Medical History: Reports: None EENT Medical History: Reports: None Neurological Medical History: Reports: None Endocrine Medical History: Reports: Diabetes Mellitus Type 2, Hypothyroidism Renal/ Medical History: Reports: None Malignancy Medical History: Reports: None GI Medical History: Reports: None Musculoskeltal Medical History: Reports: Arthritis Skin Medical History: Reports: None Psychiatric Medical History: Reports: None Traumatic Medical History: Reports: None Hematology: Reports: None Infectious Medical History: Reports: None Past Surgical History Past Surgical History: Reports: Section, Cholecystectomy, Hysterectomy Social History Information Source: Relative, [facility] Lives with: Family Smoking Status: Never Smoker Frequency of Alcohol Use: None Hx Recreational Drug Use: No Drugs: None Hx Prescription Drug Abuse: No Do you have pets?: No Have you had any respiratory illnesses as a child?: No Have you been exposed to any sick contacts recently?: No Have you had any recent respiratory illnesses?: No Have you travelled outside of [place] in the past 12 months?: No - Advance Directive Resuscitation Status: Full Code Family History Family History: DM, Hypertension Parental Family History Reviewed: Yes Children Family History Reviewed: Yes Sibling(s) Family History Reviewed.: Yes Medication/Allergy Home Medications: No Home Medications 10/26/17 Allergies/Adverse Reactions: No Known Allergies Allergy (Verified 08/20/16 07:50) Review of Systems ROS unobtainable: Due to endotracheal tube Physical Exam Vital Signs: Temp Pulse Resp BP Pulse Ox 99.7 F 116 H 22 H 101/61 100 10/27/17 08:00 10/27/17 08:00 10/27/17 08:00 10/27/17 08:00 10/27/17 08:00 Intake & Output 10/26/17 10/27/17 10/28/17 06:59 06:59 06:59 Intake Total 6248 Output Total 2745 45 Balance 3503 -45 Weight 166.7 kg General appearance: PRESENT: no acute distress, disheveled, morbidly obese, well -developed. ABSENT: cooperative, mild distress, obese, severe distress, thin Head exam: PRESENT: atraumatic, normocephalic Eye exam: PRESENT: conjunctiva pale. ABSENT: conjunctival injection, conjunctiva pink, EOMI, nystagmus, periorbital swelling, scleral icterus Mouth exam: PRESENT: dry mucosa, neck supple, tongue midline, other - ET tube. ABSENT: laceration, moist Neck exam: ABSENT: carotid bruit, JVD, lymphadenopathy, thyromegaly, tracheal deviation, tracheostomy Respiratory exam: PRESENT: decreased breath sounds, prolonged expiratory phas, rhonchi, symmetrical, unlabored. ABSENT: accessory muscle use, chest wall tenderness, clear to auscultation ashok, crackles, retraction Cardiovascular exam: PRESENT: RRR, +S1, +S2 Pulses: PRESENT: normal radial pulses GI/Abdominal exam: PRESENT: other Extremities exam: ABSENT: clubbing, joint swelling Musculoskeletal exam: ABSENT: deformity, dislocation Neurological exam: ABSENT: alert, awake Skin exam: PRESENT: dry, warm, other - necrotizing fashitis Results Laboratory Results: 10/27/17 06:10 10/27/17 06:10 10/26/17 10/27/17 10/27/17 20:45 02:00 02:00 WBC 12.5 H RBC 4.20 Hgb 10.7 L Hct 33.2 L MCV 79 L MCH 25.5 L MCHC 32.3 RDW 15.9 H Plt Count 148 L Seg Neutrophils % Lymphocytes % Monocytes % Eosinophils % Basophils % Absolute Neutrophils Absolute Lymphocytes Absolute Monocytes Absolute Eosinophils Absolute Basophils Carbonic Acid HCO3/H2CO3 Ratio ABG pH ABG pCO2 ABG pO2 ABG HCO3 ABG O2 Saturation ABG Base Excess FiO2 Sodium 133.6 L 139.0 Potassium 4.3 3.9 Chloride 99 106 Carbon Dioxide 22 22 Anion Gap 13 11 BUN 41 H 40 H Creatinine 1.98 H 2.04 H Est GFR ( Amer) 32 L 31 L Est GFR (Non-Af Amer) 27 L 26 L Glucose 616 H* 332 H Lactic Acid Calcium 9.3 8.7 Magnesium Urine Color Urine Appearance Urine pH Ur Specific [place] Urine Protein Urine Glucose (UA) Urine Ketones Urine Blood Urine Nitrite Ur Leukocyte Esterase Urine WBC (Auto) Urine RBC (Auto) 10/27/17 10/27/17 10/27/17 02:50 06:10 06:10 WBC 12.5 H RBC 3.90 Hgb 9.8 L Hct 30.7 L MCV 79 L MCH 25.2 L MCHC 32.1 RDW 15.7 H Plt Count 144 L Seg Neutrophils % Not Reportable Lymphocytes % Not Reportable Monocytes % Not Reportable Eosinophils % Not Reportable Basophils % Not Reportable Absolute Neutrophils Not Reportable Absolute Lymphocytes Not Reportable Absolute Monocytes Not Reportable Absolute Eosinophils Not Reportable Absolute Basophils Not Reportable Carbonic Acid HCO3/H2CO3 Ratio ABG pH ABG pCO2 ABG pO2 ABG HCO3 ABG O2 Saturation ABG Base Excess FiO2 Sodium 139.0 Potassium 4.0 Chloride 108 H Carbon Dioxide 21 L Anion Gap 10 BUN 40 H Creatinine 1.98 H Est GFR ( Amer) 32 L Est GFR (Non-Af Amer) 27 L Glucose 222 H Lactic Acid Calcium 8.1 L Magnesium 1.8 Urine Color ANJELICA Urine Appearance CLOUDY Urine pH 5.0 Ur Specific [place] 1.019 Urine Protein 100 H Urine Glucose (UA) 50 H Urine Ketones NEGATIVE Urine Blood MODERATE H Urine Nitrite NEGATIVE Ur Leukocyte Esterase NEGATIVE Urine WBC (Auto) 17 Urine RBC (Auto) 2 10/27/17 10/27/17 06:10 06:10 WBC RBC Hgb Hct MCV MCH MCHC RDW Plt Count Seg Neutrophils % Lymphocytes % Monocytes % Eosinophils % Basophils % Absolute Neutrophils Absolute Lymphocytes Absolute Monocytes Absolute Eosinophils Absolute Basophils Carbonic Acid 1.44 H HCO3/H2CO3 Ratio 14:1 ABG pH 7.27 L ABG pCO2 47.7 H ABG pO2 120.2 H ABG HCO3 21.3 ABG O2 Saturation 97.8 ABG Base Excess -5.5 FiO2 50% Sodium Potassium Chloride Carbon Dioxide Anion Gap BUN Creatinine Est GFR ( Amer) Est GFR (Non-Af Amer) Glucose Lactic Acid 1.4 Calcium Magnesium Urine Color Urine Appearance Urine pH Ur Specific [place] Urine Protein Urine Glucose (UA) Urine Ketones Urine Blood Urine Nitrite Ur Leukocyte Esterase Urine WBC (Auto) Urine RBC (Auto) Impressions: Pelvis X-Ray 10/26/17 15:14 IMPRESSION: Heterogeneous density is identified in the soft tissues at the level of the perineum and in the upper thigh on the left consistent with air in the soft tissues. This presumably is related to an infectious process. Clinical correlation is recommended. Other findings as noted above Chest X-Ray 10/27/17 00:00 IMPRESSION: Small atelectasis-pneumonia right upper lobe. Lines and tubes. 2010 [employer]- All Rights Reserved KUB X-Ray 10/27/17 01:03 IMPRESSION: Enteric tube. 2010 [employer]- All Rights Reserved Assessment & Plan - Diagnosis (1) Hyperglycemia Is this a current diagnosis for this admission?: Yes Plan: ssi (2) Hypertension Is this a current diagnosis for this admission?: Yes Plan: stable (3) Necrotizing fasciitis Is this a current diagnosis for this admission?: Yes Plan: per surgery (4) Sepsis affecting skin Is this a current diagnosis for this admission?: Yes (5) Suprapubic abscess Is this a current diagnosis for this admission?: Yes (6) Diabetes Is this a current diagnosis for this admission?: Yes (7) Hypothyroidism Is this a current diagnosis for this admission?: Yes - Time Total Critical Time (Minutes): 55
[2017-10-27] MEDS ORDERED: SILVER SULFADIAZINE 1% CREAM 25 GM ONE (10:44)
[2017-10-27] MEDS ORDERED: FENTANYL CITRATE INJ/PF 100 MCG/2 ML AMPUL ONE (10:48)
[2017-10-27] MEDS ORDERED: PROPOFOL INJ 200 MG/20 ML VIAL IV ONE (10:49)
[2017-10-27] MEDS ORDERED: HYDROMORPHONE HCL INJ/PF 2 MG/ML AMPULE ONE (10:49)
--- NOTE | 2017-10-27 11:40 | PDOC PROGRESS REPORT ---
Subjective Progress Note for:: 10/27/17 Subjective:: Intubated and sedated Reason For Visit: GANGRENE OF PANNUS Physical Exam Vital Signs: Temp Pulse Resp BP Pulse Ox 100.3 F 118 H 14 98/58 L 98 10/27/17 10:37 10/27/17 10:37 10/27/17 10:37 10/27/17 10:37 10/27/17 10:37 Intake & Output 10/26/17 10/27/17 10/28/17 06:59 06:59 06:59 Intake Total 6248 Output Total 2745 55 Balance 3503 -55 Weight 166.7 kg General appearance: PRESENT: no acute distress Eye exam: PRESENT: conjunctiva pink. ABSENT: scleral icterus Mouth exam: PRESENT: moist, tongue midline Neck exam: ABSENT: JVD Respiratory exam: PRESENT: clear to auscultation ashok. ABSENT: rales, rhonchi, wheezes Cardiovascular exam: PRESENT: RRR. ABSENT: diastolic murmur, rubs, systolic murmur GI/Abdominal exam: PRESENT: normal bowel sounds, soft. ABSENT: distended, guarding, mass, organolmegaly, rebound, tenderness Extremities exam: ABSENT: calf tenderness, clubbing, pedal edema Neurological exam: PRESENT: other - Intubated and sedated Psychiatric exam: PRESENT: other - Sedated Skin exam: PRESENT: other - Dressing in place in the suprapubic area Results Laboratory Results: 10/27/17 06:10 10/27/17 06:10 10/26/17 10/27/17 10/27/17 20:45 02:00 02:00 WBC 12.5 H RBC 4.20 Hgb 10.7 L Hct 33.2 L MCV 79 L MCH 25.5 L MCHC 32.3 RDW 15.9 H Plt Count 148 L Seg Neutrophils % Lymphocytes % Monocytes % Eosinophils % Basophils % Absolute Neutrophils Absolute Lymphocytes Absolute Monocytes Absolute Eosinophils Absolute Basophils Carbonic Acid HCO3/H2CO3 Ratio ABG pH ABG pCO2 ABG pO2 ABG HCO3 ABG O2 Saturation ABG Base Excess FiO2 Sodium 133.6 L 139.0 Potassium 4.3 3.9 Chloride 99 106 Carbon Dioxide 22 22 Anion Gap 13 11 BUN 41 H 40 H Creatinine 1.98 H 2.04 H Est GFR ( Amer) 32 L 31 L Est GFR (Non-Af Amer) 27 L 26 L Glucose 616 H* 332 H Lactic Acid Calcium 9.3 8.7 Magnesium Urine Color Urine Appearance Urine pH Ur Specific [place] Urine Protein Urine Glucose (UA) Urine Ketones Urine Blood Urine Nitrite Ur Leukocyte Esterase Urine WBC (Auto) Urine RBC (Auto) 10/27/17 10/27/17 10/27/17 02:50 06:10 06:10 WBC 12.5 H RBC 3.90 Hgb 9.8 L Hct 30.7 L MCV 79 L MCH 25.2 L MCHC 32.1 RDW 15.7 H Plt Count 144 L Seg Neutrophils % Not Reportable Lymphocytes % Not Reportable Monocytes % Not Reportable Eosinophils % Not Reportable Basophils % Not Reportable Absolute Neutrophils Not Reportable Absolute Lymphocytes Not Reportable Absolute Monocytes Not Reportable Absolute Eosinophils Not Reportable Absolute Basophils Not Reportable Carbonic Acid HCO3/H2CO3 Ratio ABG pH ABG pCO2 ABG pO2 ABG HCO3 ABG O2 Saturation ABG Base Excess FiO2 Sodium 139.0 Potassium 4.0 Chloride 108 H Carbon Dioxide 21 L Anion Gap 10 BUN 40 H Creatinine 1.98 H Est GFR ( Amer) 32 L Est GFR (Non-Af Amer) 27 L Glucose 222 H Lactic Acid Calcium 8.1 L Magnesium 1.8 Urine Color ANJELICA Urine Appearance CLOUDY Urine pH 5.0 Ur Specific [place] 1.019 Urine Protein 100 H Urine Glucose (UA) 50 H Urine Ketones NEGATIVE Urine Blood MODERATE H Urine Nitrite NEGATIVE Ur Leukocyte Esterase NEGATIVE Urine WBC (Auto) 17 Urine RBC (Auto) 2 10/27/17 10/27/17 06:10 06:10 WBC RBC Hgb Hct MCV MCH MCHC RDW Plt Count Seg Neutrophils % Lymphocytes % Monocytes % Eosinophils % Basophils % Absolute Neutrophils Absolute Lymphocytes Absolute Monocytes Absolute Eosinophils Absolute Basophils Carbonic Acid 1.44 H HCO3/H2CO3 Ratio 14:1 ABG pH 7.27 L ABG pCO2 47.7 H ABG pO2 120.2 H ABG HCO3 21.3 ABG O2 Saturation 97.8 ABG Base Excess -5.5 FiO2 50% Sodium Potassium Chloride Carbon Dioxide Anion Gap BUN Creatinine Est GFR ( Amer) Est GFR (Non-Af Amer) Glucose Lactic Acid 1.4 Calcium Magnesium Urine Color Urine Appearance Urine pH Ur Specific [place] Urine Protein Urine Glucose (UA) Urine Ketones Urine Blood Urine Nitrite Ur Leukocyte Esterase Urine WBC (Auto) Urine RBC (Auto) Impressions: Pelvis X-Ray 10/26/17 15:14 IMPRESSION: Heterogeneous density is identified in the soft tissues at the level of the perineum and in the upper thigh on the left consistent with air in the soft tissues. This presumably is related to an infectious process. Clinical correlation is recommended. Other findings as noted above Chest X-Ray 10/27/17 00:00 IMPRESSION: Small atelectasis-pneumonia right upper lobe. Lines and tubes. 2010 [employer]- All Rights Reserved KUB X-Ray 10/27/17 01:03 IMPRESSION: Enteric tube. 2010 [employer]- All Rights Reserved Assessment & Plan - Diagnosis (1) Sepsis affecting skin Is this a current diagnosis for this admission?: Yes Plan: The patient had tachycardia, fever and relatively low blood pressure. Patient had surgical debridement last night. Will treat with vancomycin, Zosyn and clindamycin. Blood cultures have been obtained. (2) Suprapubic abscess Is this a current diagnosis for this admission?: Yes Plan: We will treat with the antibiotics as per above. Had surgical debridement last night. (3) Diabetes Is this a current diagnosis for this admission?: Yes Plan: The patient blood sugars in a more normal range. Will continue with Lantus. Also will continue with the IV fluids. (4) Hypertension Is this a current diagnosis for this admission?: Yes Plan: The patient normally takes valsartan HCTZ, and clonidine. Will hold those for now given her infection and will restart those back when her blood pressures start to become elevated. (5) Hypothyroidism Is this a current diagnosis for this admission?: Yes Plan: We will continue with her outpatient Synthroid dose. - Time Time Spent with patient: 25-34 minutes - Inpatient Certification Medical Necessity: Need for IV Antibiotics
[2017-10-27] MEDS ORDERED: FENTANYL CITRATE INJ/PF 100 MCG/2 ML AMPUL IV PRN ×3 (11:43)
[2017-10-27] MEDS ORDERED: MORPHINE SULFATE 10 MG/ML INJ IV PRN (11:43)
[2017-10-27] MEDS ORDERED: MEPERIDINE HCL/PF INJ 25 MG/1 ML DISP.SYRIN IV PRN (11:43)
[2017-10-27] MEDS: SILVER SULFADIAZINE 1% CREAM 400 GM TP ONE ×2 (12:01→14:09)
[2017-10-27] MEDS ORDERED: NOREPINEPHRINE BITARTRATE INJ/PF 4 MG/4 ML SDV IV ONE (13:41)
--- NOTE | 2017-10-27 13:41 | Operative Report ---
Operative Report DATE OF SURGERY: 10/27/17 PREOPERATIVE DIAGNOSIS: nECROTIZINF FASCITIS LOWER ABDOMINAL PANNUS, LEFT UPPER THIGH, LEFT VULVA POSTOPERATIVE DIAGNOSIS: Same, extending to left lateral vaginal wall and left deep perineum OPERATION: Excisional debridement of suprapubic region and left upper thigh. Right subclavian triple-lumen central venous catheter placement SURGEON: PEPPER TURNER ANESTHESIA: GA TISSUE REMOVED OR ALTERED: Necrotic skin excised from the suprapubic region and the left upper thigh, left vulva, and left inner perineum. COMPLICATIONS: none ESTIMATED BLOOD LOSS: 400 cc INTRAOPERATIVE FINDINGS: see dictation PROCEDURE: Wide debridment of left lower pannus, left upper thigh, left vulva
[2017-10-27] MEDS ORDERED: PHENYLEPHRINE HCL INJ/PF 10 MG/1 ML SDV ONE (14:22)
--- NOTE | 2017-10-27 15:19 | TRANSFER SUMMARY E ---
Transfer Summary NAME: MADDIE LAWSON : 1970 AGE: 47Y ADMITTED: 10/26/2017 TRANSFERRED: 10/27/2017 FINAL DIAGNOSIS: Necrotizing fasciitis, left lower abdomen, left upper thigh and left vulva. PROCEDURE: On 10/26/2017 and 10/27/2017 the patient underwent full-thickness debridement down to fascia of the left lower abdominal pannus, left upper thigh skin, subcutaneous tissue and fascia, and left vulva. COMPLICATIONS: None. HOSPITAL COURSE: This is a morbidly obese 47-year-old female who presented to the Emergency Room with confusion, change in mental status, and an obviously infected left groin area who had a high blood sugar of above 800. The patient was taken to surgery shortly after evaluation in the Emergency Room and underwent initial debridement on 10/26/2017. Subsequently she was transferred to the ICU and remained intubated. Her urine output was good. She was maintained on IV antibiotics, Zosyn, clindamycin and Zyvox. She was left intubated and the following morning the patient presented with stable vital signs, but exam of her wound revealed foul smell and discoloration of the fatty tissue of the surgical wound as well as evidence of necrosis of the skin. She was taken back to surgery where she underwent a wider debridement of her left lower abdominal pannus extending to the flank plus left upper thigh and left vulva. During the surgery it was noted that the necrotic tissue was extending along the left lateral wall of the vagina. Intraoperative consultation with Dr. Tolentino from [facility] was obtained and she recommended transferring the patient to a tertiary center with a [facility] surgical-oncologist for resection of the infected vulva as well as surgical debridment the deep perineum and pelvis. [facility], Dr. Ball, who is an [facility] surgical oncologist, was contacted and the patient was then accepted for transfer while intubated via ambulance. DICTATING PHYSICIAN: PEPPER TURNER M.D. [id number] PHY#: [id number] ID: [id number] JOB#: [id number] ACCT: [id number] cc:PEPPER TURNER M.D. > [facility]
--- NOTE | 2017-10-27 15:24 | OPERATIVE REPORT E ---
Operative Report NAME: MADDIE LAWSON : 1970 AGE: 47Y DATE OF SURGERY: 10/27/2017 ROOM: 612 PREOPERATIVE DIAGNOSIS: Necrotizing fasciitis involving the lower abdomen, lower abdominal pannus, left upper thigh, and vulva. POSTOPERATIVE DIAGNOSIS: Necrotizing fasciitis involving the lower abdomen, lower abdominal pannus, left upper thigh, and vulva. OPERATION: Wide debridement to abdominal pannus, left vulva, and left upper thigh and groin. SURGEON: PEPPER TURNER M.D. PSYCHIATRIC SECRETARY: None. ESTIMATED BLOOD LOSS: 400. FLUIDS: 400. URINE OUTPUT: Less than 150. DRAINS: None. COMPLICATIONS: None. INDICATION AND FINDINGS: This is a morbidly obese 47-year-old female with diabetes who presented to the emergency room yesterday with elevated blood sugar, infection of the left lower abdominal pannus, left groin, upper thigh, and vulva. She underwent emergent surgery shortly following medical evaluation. However, this morning on physical exam she presented again with foul smelling drainage and jenkins discoloration of the skin and subcutaneous fat of the edges of the surgical wound. Decision was made to take the patient to surgery immediately for additional debridement. Procedure, benefits, and complications were explained the patient's . He understood and decided to proceed. DESCRIPTION OF PROCEDURE: It was done in the operating room. The patient was already intubated. She was placed on the surgical table on stirrups on a lithotomy position. The abdominal pannus was pulled upward with tape so to expose the surgical area. The area of the skin which appeared to be devitalized were marked and a rim of normal skin was included inside the marked area so to obtain adequate debridement. The extension of the marking of the skin extended from lower pannus to the groin to the left upper thigh and extended to the vulva. In addition, debrided skin between the lower abdominal pannus in the groin and upper thigh was included With the use of Bovie, the skin was resected with the subcutaneous fat and completely excised. Local bleeders were controlled with Bovie and with suture ligature using 2-0 silk [id number] sutures. When all the extensive debridement was performed, additional debridement was performed on the left lateral aspect of the area extending toward the left hip and inferiorly to involve the subcutaneous fat just covering the adductor thigh muscles. Additional necrotic tissue was identified extending between the adductor muscles of the leg and the left lateral wall of the vagina. Some of this tissue was debrided with Bovie, however, because of the necrotic tissue deep appeared to extend deep into the pelvis just on the left lateral aspect of the vagina, an intraoperative consult with Dr. Tolentino from [facility] was obtained. Following her examination of the patient, Dr. Tolentino recommended to abort further debridement of the left lateral wall of the vagina as severe bleeding could have occurred; rather, she recommended to transfer the patient to a tertiary center with surgical oncology expertise to continue debridement of the area. The remaining portion of debridement which included lower abdominal pannus, the left thigh, and vulva appeared to be clean at the end ot the procedure. There was nice yellow subcutaneous fat except for the area of the vulva on the left of the vagina which was deep into the perineum. The area was irrigated with normal saline. Local bleeders were cauterized or controlled with [id number] 2-0 silk interrupted sutures. The wound was then packed with 3 Kerlix rolls soaked in a slurry of Silvadene and normal saline, covered by ABD, Kerlix roll, and SRI bandages. The patient tolerated the procedure well and was transferred to the ICU intubated in stable but guarded conditions. DICTATING PHYSICIAN: PEPPER TURNER M.D. [id number] PHY#: [id number] ID: [id number] JOB#: [id number] ACCT: [id number] cc:PEPPER TURNER M.D. > MTDD
--- NOTE | 2017-10-27 15:36 | Operative Report ---
Nonrecallable Operative Report DATE OF SURGERY: 10/27/17 Operative Report: Intraop Consult PREOPERATIVE DIAGNOSIS: Necrotizing fasciitis of lower abd pannus, left vulva, left thigh POSTOPERATIVE DIAGNOSIS: JOSE M OPERATION: Intraop Consult SURGEON: MATTY FRANZ ANESTHESIA: GA COMPLICATIONS: See Dr. Moctezuma's Operative Report PROCEDURE: 47yo with multiple comorbidities admitted for debridement and management of abscess in suprapubic region. SHe was taken to the operating room for debridement last evening (with Dr. Vidales) and then reportedly worsened overnight requiring repeat evaluation and debridement in the OR (Dr. Moctezuma). I was asked by Dr. Moctezuma to evaluate the patient intraoperatively after significant debridement had occured to the muscle in the thigh and also extending deep into the paravaginal spcae and into the left vulva. During intraoperative evaluation debridement appears to be still needed and appears that additional debridement would extend significantly deeper into paravaginal space and possibly into the vaginal wall and possibly into upper paravaginal space and bladder. No debridement was done by myself due to concern for extension into vagina/bladder/etc. Due to the extensive nature of need for debridement and likely need for additional debridement in the future with necrotizing fasciitis and need for specialized care with more specialized surgeon would recommend transfer to Tertiary care facility for specialized evaluation and management. Would likely benefit from evaluation with [facility] is Dr. Ball and Dr. Pretty). Dr. Moctezuma is going to complete procedure and pack wounds and then prepare to transfer to tertiary care facility (via ICU, transfusion is also in process). Appreciate consultation.
--- NOTE | 2017-10-27 15:55 | PDOC TRANSFER SUMMARY ---
General Admission Date/PCP: 10/26/17 17:28 MARIBEL SAN DO Transfer Date: 10/27/17 Accepting Facility: [facility] Accepting Physician: dr Ball Resuscitation Status: Full Code - Transfer Diagnosis (1) Sepsis affecting skin Is this a current diagnosis for this admission?: Yes (2) Suprapubic abscess Is this a current diagnosis for this admission?: Yes Diagnosis Summary: With evidence of necrotizing fasciitis. Status post surgical debridement 2 (3) Diabetes Is this a current diagnosis for this admission?: Yes (4) Hypertension Is this a current diagnosis for this admission?: Yes Diagnosis Summary: Patient has a history of hypertension but has been off medications secondary to hypotension related to sepsis. (5) Hypothyroidism Is this a current diagnosis for this admission?: Yes - Transfer Medications Home Medications: No Home Medications 10/26/17 Transfer Medications: Current Medications Albuterol/Ipratropium (Duoneb 3 Ml Ampul) 3 ml NEB RTQ6HP PRN PRN Reason: SHORTNESS OF BREATH Stop: 11/25/17 17:10 Dextrose (Dextrose Inj 50% Syringe (25 Gm/50 Ml)) 12.5 gm IV PRN PRN; Protocol PRN Reason: FOR BG 50-69 IN ALERT PATIENT Stop: 11/25/17 15:58 Dextrose (Dextrose Inj 50% Syringe (25 Gm/50 Ml)) 25 gm IV PRN PRN; Protocol PRN Reason: PER PROTOCOL Stop: 11/25/17 15:58 Famotidine (Pepcid 20 Mg Tablet) 20 mg NG Q12 JASMINE Stop: 11/25/17 21:59 Glucagon (Glucagen Inj 1 Mg Vial) 1 mg IM PRN PRN; Protocol PRN Reason: Evaluate for BG < 70 Stop: 11/25/17 15:58 Glucose (Glutose 40% Gel 15 Gm Tube) 15 gm NG PRN PRN; Protocol PRN Reason: FOR BG 50-69 IN ALERT PATIENT Stop: 11/25/17 15:58 Glucose (Glutose 40% Gel 15 Gm Tube) 30 gm NG PRN PRN; Protocol PRN Reason: FOR BG < 50 IN ALERT PATIENT Stop: 11/25/17 15:58 Piperacillin Sod/Tazobactam (Sod 3.375 gm/ Sodium Chloride) 100 mls @ 200 mls/ hr IV Q6A JASMINE Stop: 11/02/17 20:59 Last Admin: 10/27/17 14:07 Dose: 3.375 gm Clindamycin Phosphate/Dextrose (Cleocin Rtu 600 Mg/D5w 50 Ml Premix) 600 mg in 50 mls @ 50 mls/hr IV Q8 [facility] Stop: 11/02/17 21:59 Last Admin: 10/27/17 14:08 Dose: 50 ml Insulin Human Regular 100 unit (/ Sodium Chloride) 101 mls @ 0 mls/hr IV CONTINUOUS PRN; Protocol; Titrate PRN Reason: THIS MED IS NOT "PRN" Stop: 11/25/17 19:59 Vancomycin HCl 1,000 mg/ (Dextrose) 250 mls @ 166.667 mls/hr IV Q12@0300,1500 [facility] Stop: 11/03/17 02:59 Last Admin: 10/27/17 14:07 Dose: 1,000 mg Sodium Chloride (Nacl 0.9% 1000 Ml Iv Soln) 1,000 mls @ 120 mls/hr IV CONTINUOUS PRN PRN Reason: THIS MED IS NOT "PRN" Stop: 11/25/17 17:10 Propofol (Diprivan Rtu 1000 Mg/100 Ml Inf.Bottle) 100 mls @ 0 mls/hr IV CONTINUOUS PRN; Protocol; Titrate PRN Reason: THIS MED IS NOT "PRN" Stop: 11/26/17 01:43 Last Admin: 10/27/17 02:12 Dose: 100 ml Influenza Virus Vaccine Quadrival (Fluzone Adlt Quad 1346-2676 Vac 0.5 Ml Syr) 0.5 ml IM .DISCHARGE PRN PRN Reason: THIS MED IS NOT "PRN" Stop: 11/26/17 02:38 Insulin Glargine (Lantus Insulin Inj 300 Unit/3 Ml Pen) 60 unit SUBCUT QHS [facility] Stop: 11/25/17 21:59 Last Admin: 10/26/17 22:01 Dose: 60 unit Levothyroxine Sodium (Synthroid 0.05 Mg Tablet) 0.05 mg NG Q6AM [facility] Stop: 11/26/17 05:59 Last Admin: 10/27/17 06:01 Dose: 0.05 mg Morphine Sulfate (Morphine 10 Mg/Ml Inj) 5 mg IV Q2HP PRN PRN Reason: FOR PAIN Stop: 11/03/17 01:14 Last Admin: 10/27/17 14:06 Dose: 5 mg Ondansetron HCl (Zofran Odt 4 Mg Tablet) 4 mg NG Q6HP PRN PRN Reason: FOR NAUSEA/VOMITING Stop: 11/25/17 17:10 Pharmacy Profile Note (Medication Communication Order) 1 each [facility] .NOTICE NR Stop: 11/26/17 01:14 - Allergies Allergies/Adverse Reactions: No Known Allergies Allergy (Verified 08/20/16 07:50) Hospital Course Hospital Course: 47-year-old female diabetic who presented yesterday with worsening pain and drainage from her suprapubic area. The patient was noted to have an abscess with possible necrotizing fasciitis. She also is a diabetic and presented with blood sugars over 800. The patient was treated aggressively with fluids because she was found to be septic with initially hypotension. This improved initially with IV fluids. She went to the operating room yesterday evening and had surgical debridement. She was left on the ventilator and went back to the operating room today with further debridement that involves the area around the labia. Because of the extensive amount of debridement general surgery felt that she should be at a tertiary care center and Dr. Ball of gynecology oncology surgery has accepted the patient. The patient had greater than a liter of blood loss with today's debridement and is in the process of getting 2 units of packed red blood cells. She has been on levo fed at 5 mcg currently. The patient has the elevated blood sugars but they have improved and she has been responding to IV fluids. Patient also has morbid obesity and most likely has obstructive sleep apnea although she has not been tested. Patient will be transferred to [facility] for further evaluation. Physical Exam Vital Signs: Temp Pulse Resp BP Pulse Ox 98.6 F 87 20 105/69 100 10/27/17 15:15 10/27/17 15:15 10/27/17 15:30 10/27/17 15:23 10/27/17 15:15 Intake & Output 10/26/17 10/27/17 10/28/17 06:59 06:59 06:59 Intake Total 6248 1300 Output Total 2745 1065 Balance 3503 235 Weight 166.7 kg General appearance: PRESENT: no acute distress Eye exam: PRESENT: conjunctiva pink. ABSENT: scleral icterus Mouth exam: PRESENT: moist, tongue midline Neck exam: ABSENT: JVD Respiratory exam: PRESENT: clear to auscultation ashok. ABSENT: rales, rhonchi, wheezes Cardiovascular exam: PRESENT: RRR. ABSENT: diastolic murmur, rubs, systolic murmur GI/Abdominal exam: PRESENT: normal bowel sounds, soft. ABSENT: distended, guarding, mass, organolmegaly, rebound, tenderness Extremities exam: ABSENT: calf tenderness, clubbing, pedal edema Neurological exam: PRESENT: other - Intubated and sedated Skin exam: PRESENT: other - Dressing in place in the suprapubic and perineal area Results Laboratory Results: 10/27/17 06:10 10/27/17 06:10 10/26/17 10/26/17 10/27/17 20:45 20:45 02:00 WBC 12.5 H RBC 4.20 Hgb 10.7 L Hct 33.2 L MCV 79 L MCH 25.5 L MCHC 32.3 RDW 15.9 H Plt Count 148 L Seg Neutrophils % Lymphocytes % Monocytes % Eosinophils % Basophils % Absolute Neutrophils Absolute Lymphocytes Absolute Monocytes Absolute Eosinophils Absolute Basophils Carbonic Acid HCO3/H2CO3 Ratio ABG pH ABG pCO2 ABG pO2 ABG HCO3 ABG O2 Saturation ABG Base Excess FiO2 Sodium 133.6 L Potassium 4.3 Chloride 99 Carbon Dioxide 22 Anion Gap 13 BUN 41 H Creatinine 1.98 H Est GFR ( Amer) 32 L Est GFR (Non-Af Amer) 27 L Glucose 616 H* Lactic Acid Calcium 9.3 Magnesium Urine Color Urine Appearance Urine pH Ur Specific [place] Urine Protein Urine Glucose (UA) Urine Ketones Urine Blood Urine Nitrite Ur Leukocyte Esterase Urine WBC (Auto) Urine RBC (Auto) Blood Type O POSITIVE Antibody Screen NEGATIVE 10/27/17 10/27/17 10/27/17 02:00 02:50 06:10 WBC 12.5 H RBC 3.90 Hgb 9.8 L Hct 30.7 L MCV 79 L MCH 25.2 L MCHC 32.1 RDW 15.7 H Plt Count 144 L Seg Neutrophils % Not Reportable Lymphocytes % Not Reportable Monocytes % Not Reportable Eosinophils % Not Reportable Basophils % Not Reportable Absolute Neutrophils Not Reportable Absolute Lymphocytes Not Reportable Absolute Monocytes Not Reportable Absolute Eosinophils Not Reportable Absolute Basophils Not Reportable Carbonic Acid HCO3/H2CO3 Ratio ABG pH ABG pCO2 ABG pO2 ABG HCO3 ABG O2 Saturation ABG Base Excess FiO2 Sodium 139.0 Potassium 3.9 Chloride 106 Carbon Dioxide 22 Anion Gap 11 BUN 40 H Creatinine 2.04 H Est GFR ( Amer) 31 L Est GFR (Non-Af Amer) 26 L Glucose 332 H Lactic Acid Calcium 8.7 Magnesium Urine Color ANJELICA Urine Appearance CLOUDY Urine pH 5.0 Ur Specific [place] 1.019 Urine Protein 100 H Urine Glucose (UA) 50 H Urine Ketones NEGATIVE Urine Blood MODERATE H Urine Nitrite NEGATIVE Ur Leukocyte Esterase NEGATIVE Urine WBC (Auto) 17 Urine RBC (Auto) 2 Blood Type Antibody Screen 10/27/17 10/27/17 10/27/17 06:10 06:10 06:10 WBC RBC Hgb Hct MCV MCH MCHC RDW Plt Count Seg Neutrophils % Lymphocytes % Monocytes % Eosinophils % Basophils % Absolute Neutrophils Absolute Lymphocytes Absolute Monocytes Absolute Eosinophils Absolute Basophils Carbonic Acid 1.44 H HCO3/H2CO3 Ratio 14:1 ABG pH 7.27 L ABG pCO2 47.7 H ABG pO2 120.2 H ABG HCO3 21.3 ABG O2 Saturation 97.8 ABG Base Excess -5.5 FiO2 50% Sodium 139.0 Potassium 4.0 Chloride 108 H Carbon Dioxide 21 L Anion Gap 10 BUN 40 H Creatinine 1.98 H Est GFR ( Amer) 32 L Est GFR (Non-Af Amer) 27 L Glucose 222 H Lactic Acid 1.4 Calcium 8.1 L Magnesium 1.8 Urine Color Urine Appearance Urine pH Ur Specific [place] Urine Protein Urine Glucose (UA) Urine Ketones Urine Blood Urine Nitrite Ur Leukocyte Esterase Urine WBC (Auto) Urine RBC (Auto) Blood Type Antibody Screen Impressions: Pelvis X-Ray 10/26/17 15:14 IMPRESSION: Heterogeneous density is identified in the soft tissues at the level of the perineum and in the upper thigh on the left consistent with air in the soft tissues. This presumably is related to an infectious process. Clinical correlation is recommended. Other findings as noted above Chest X-Ray 10/27/17 00:00 IMPRESSION: Small atelectasis-pneumonia right upper lobe. Lines and tubes. 2010 [employer]- All Rights Reserved KUB X-Ray 10/27/17 01:03 IMPRESSION: Enteric tube. 2010 [employer]- All Rights Reserved Plan Discharge Plan: Patient is to be transferred to [facility] for further treatment. Dr. Ball is the accepting physician. Time Spent: Greater than 30 Minutes
[2017-10-27 18:05] VITALS: BP 109/70
== END 2017-10-27 17:33 | disposition short-term general hospital (02) | DRG 853 ==
LOC: ER 14:14 → EH 17:28 → ICU 10-27 00:55
PROVIDERS: ADMIT Internal Medicine; ATTEND Internal Medicine
PROC: 0JBB0ZZ Excision of Perineum Subcutaneous Tissue and Fascia, Open Approach (ICD-10-PCS; 2017-10-26)
PROC: 0JBM0ZZ Excision of Left Upper Leg Subcutaneous Tissue and Fascia, Open Approach (ICD-10-PCS; 2017-10-26)
PROC: 0JBC0ZZ Excision of Pelvic Region Subcutaneous Tissue and Fascia, Open Approach (ICD-10-PCS; principal; 2017-10-26 22:00)
PROC: 0JBM0ZZ Excision of Left Upper Leg Subcutaneous Tissue and Fascia, Open Approach (ICD-10-PCS; 2017-10-27)
PROC: 0JB80ZZ Excision of Abdomen Subcutaneous Tissue and Fascia, Open Approach (ICD-10-PCS; 2017-10-27)
PROC: 0JBB0ZZ Excision of Perineum Subcutaneous Tissue and Fascia, Open Approach (ICD-10-PCS; 2017-10-27)
PROC: 0JBC0ZZ Excision of Pelvic Region Subcutaneous Tissue and Fascia, Open Approach (ICD-10-PCS; 2017-10-27)
PROC: 02HV33Z Insertion of Infusion Device into Superior Vena Cava, Percutaneous Approach (ICD-10-PCS; 2017-10-27)
PROC: 30233N1 Transfusion of Nonautologous Red Blood Cells into Peripheral Vein, Percutaneous Approach (ICD-10-PCS; 2017-10-27)
PROC: 5A1935Z Respiratory Ventilation, Less than 24 Consecutive Hours (ICD-10-PCS; 2017-10-27)
DX: A41.9 Sepsis, unspecified organism (principal); M72.6 Necrotizing fasciitis; L02.215 Cutaneous abscess of perineum; E87.2 Acidosis; D62 Acute posthemorrhagic anemia; Z68.44 Body mass index [BMI] 60.0-69.9, adult; E11.65 Type 2 diabetes mellitus with hyperglycemia; B95.2 Enterococcus as the cause of diseases classified elsewhere; E03.9 Hypothyroidism, unspecified; I50.9 Heart failure, unspecified; I11.0 Hypertensive heart disease with heart failure; I25.10 Atherosclerotic heart disease of native coronary artery without angina pectoris; M19.90 Unspecified osteoarthritis, unspecified site; E66.01 Morbid (severe) obesity due to excess calories; I25.2 Old myocardial infarction
CPT/HCPCS: 1250; 36415; 36430; 71045; 72170; 74018; 800; 80048; 80053; 81001; 82803; 82962; 83605; 83735; 85025; 85027; 85610; 86850; 86900; 86901; 86920; 87040; 87070; 87075; 87077; 87086; 87186; 87205; 88305; 93005; 93010; 94002; 94660; 96365; 96367; 99291; C1751; J0696; J1170; J1815; J2250; J2270; J2370; J2543; J2704; J3010; J3370; J3490; J7030; J7060; P9016

== ENCOUNTER 2018-02-13 14:01 | Inpatient (IN) | payer MEDICAID ==
--- NOTE | 2018-02-13 15:48 | ER Document Report ---
ED General <TAZ MIDDLETON - Last Filed: 02/14/18 06:42> - General TRAVEL OUTSIDE OF THE [place] IN LAST 30 DAYS: No <SACHIN CARROLL - Last Filed: 02/17/18 07:23> - General Chief Complaint: Abdominal Pain Stated Complaint: ABDOMINAL PAIN, VOMITING Time Seen by Provider: 02/13/18 15:47 Notes: Patient is a 47-year-old female presents emergency department via EMS with a chief complaint of epigastric discomfort, nausea, vomiting and dark urine. Patient states that her symptoms started 3 days ago with dark urine as well as nausea, vomiting. She states she has been constipated and has not gone in the past 4 days. She states this is abnormal for her. Patient also admits to abdominal discomfort for the past 24 hours. She denies any pyuria hematuria at this time. She denies any fevers or chills. Patient was recently hospitalized for a cellulitis of the pannus that she is doing routine wound care for it3 PCP carmenza (SACHIN CARROLL) - Related Data Allergies/Adverse Reactions: No Known Allergies Allergy (Verified 02/13/18 14:02) Past Medical History - Social History Smoking Status: Smoker,Current Status Unk Family History: DM, Hypertension - Past Medical History Cardiac Medical History: Reports: Hx Congestive Heart Failure, Hx Coronary Artery Disease, Hx Heart Attack, Hx Hypertension Endocrine Medical History: Reports: Hx Diabetes Mellitus Type 2, Hx Hypothyroidism Renal/ Medical History: Denies: Hx Peritoneal Dialysis Musculoskeltal Medical History: Reports Hx Arthritis Past Surgical History: Reports: Hx Section, Hx Cholecystectomy, Hx Hysterectomy <SACHIN CARROLL - Last Filed: 02/17/18 07:23> Review of Systems - Review of Systems Constitutional: No symptoms reported Cardiovascular: No symptoms reported Respiratory: No symptoms reported Gastrointestinal: See HPI Genitourinary: See HPI Skin: See HPI -: Yes All other systems reviewed and negative <SACHIN CARROLL - Last Filed: 02/17/18 07:23> Physical Exam <TAZ MIDDLETON - Last Filed: 02/14/18 06:42> <SACHIN CARROLL - Last Filed: 02/17/18 07:23> - Vital signs Vitals: Temp Pulse Resp BP Pulse Ox 98.9 F 60 20 134/70 H 97 02/13/18 14:12 02/13/18 14:12 02/13/18 14:12 02/13/18 14:12 02/13/18 14:12 - Notes Notes: PHYSICAL EXAM GENERAL: Alert, interacts well. HEAD: Normocephalic, atraumatic. EYES: Pupils equal, round, and reactive to light. Extraocular movements intact. ENT: Oral mucosa moist, tongue midline. NECK: Full range of motion. Supple. Trachea midline. LUNGS: Clear to auscultation bilaterally, no wheezes, rales, or rhonchi. No respiratory distress. HEART: Regular rate and rhythm. No murmurs, gallops, or rubs. ABDOMEN: Soft, morbidly obese nondistended, nontender. No guarding, rebound, or rigidity.. Bowel sounds present in all 4 quadrants. EXTREMITIES: Moves all 4 extremities spontaneously. No edema, radial and dorsalis pedis pulses 2/4 bilaterally. No cyanosis. NEUROLOGICAL: Alert and oriented x4. Normal speech. PSYCH: Normal affect, normal mood. SKIN: Warm, dry, normal turgor. No rashes or lesions noted. Dressings on the inferior aspect of the pannus without any evidence of tenderness, induration, erythema or active drainage. Dressings are clean dry and intact (SACHIN CARROLL) Course - Laboratory Result Diagrams: 02/14/18 06:10 02/13/18 17:50 <TAZ MIDDLETON - Last Filed: 02/14/18 06:42> - Laboratory Result Diagrams: 02/15/18 07:55 02/16/18 06:22 <SACHIN CARROLL - Last Filed: 02/17/18 07:23> - Re-evaluation Re-evalutation: Patient's lipase is 2,007, and AST/ALT are elevated significantly. Patient does report a history of cholecystectomy 1991. Patient's exam reveals generalized abdominal tenderness with worsening pain to the upper abdomen/ epigastric area. Patient is still declining need for pain medication at this time, will add on ultrasound of the right upper quadrant and depending on results will possibly move to CT of the abdomen pelvis. Patient's right upper quadrant ultrasound is unremarkable. Will place orders for CT abdomen pelvis with IV contrast only. Patient reports that her pain has completely subsided after having the dose of Dilaudid earlier. Patient reports that her nausea is gone at this time as well. Patient and family are agreeable to current plan of care. Nurse called provider to room to report patient hypotensive and bradycardic. Patient is somnolent but easily arousable. Patient does report that she has had similar reactions in the past after having IV pain medications. Dr. Hodgson consulted who presented to bedside to evaluate patient. Second IV access obtained utilizing ultrasound. Patient has only received a total of 500 cc of fluid at this time as patient has been bending her arm. Will order additional IV fluids now that second access was obtained. After IV fluid resuscitation, patient's blood pressure 103/72. Patient resting comfortably in room awaiting CT scan. CT scan reveals pancreatitis as expected. No other significant findings. Dr. Espinosa agrees to date patient for admission on medical floor. Patient and family members are agreeable to this plan patient remains normotensive at this time. (TAZ MIDDLETON) 02/13/18 18:43 Patient is a 47-year-old female is hemodynamically stable, no acute distress and afebrile. KUB does not show any evidence of bowel gas pattern or concerns for underlying small bowel obstruction. Patient's exam is benign. Patient has not vomited since she has been in the ED. Initial CBC without evidence of leukocytosis or anemia. After the patient nausea medication and to conduct a p.o. trial after this. She agrees with plan. If they have and is not able to tolerate p.o. despite medication will review need for possible additional imaging. (SACHIN CARROLL) - Vital Signs Vital signs: Temp Pulse Resp BP Pulse Ox 98.5 F 66 16 139/71 H 96 02/17/18 05:00 02/17/18 05:00 02/17/18 05:00 02/17/18 05:00 02/17/18 05:00 - Laboratory Laboratory results interpreted by nv: 02/13/18 02/13/18 02/13/18 17:50 17:50 19:07 Hgb 11.9 L MCV 73 L MCH 23.3 L RDW 16.3 H BUN 21 H Creatinine 1.59 H Est GFR ( Amer) 42 L Est GFR (Non-Af Amer) 35 L Glucose 130 H Calcium 10.5 H Direct Bilirubin 0.9 H AST 483 H ALT 232 H Alkaline Phosphatase 849 H Lipase 2007.7 H Urine Protein 30 H Urine Urobilinogen 4.0 H Discharge - Discharge Admitting Provider: Hospitalist Unit Admitted: Medical Floor <TAZ MIDDLETON - Last Filed: 02/14/18 06:42> <SACHIN CARROLL - Last Filed: 02/17/18 07:23> - Discharge Clinical Impression: Pancreatitis Qualifiers: Chronicity: acute Pancreatitis type: other Acute pancreatitis complication: unspecified Qualified Code(s): K85.80 - Other acute pancreatitis without necrosis or infection Condition: Stable Disposition: ADMITTED INPATIENT
--- NOTE | 2018-02-13 16:38 | RADIOLOGY REPORT (SQ) ---
EXAM DESCRIPTION: KUB/ABDOMEN (SINGLE VIEW) COMPLETED DATE/TIME: 02/13/2018 4:21 pm REASON FOR STUDY: abdoinal pain, constipation, vomiting COMPARISON: None. NUMBER OF VIEWS: One view. TECHNIQUE: Supine radiographic image of the abdomen acquired. LIMITATIONS: None. FINDINGS: BOWEL GAS PATTERN: Normal bowel gas pattern. No dilated loops. CALCIFICATIONS: No suspicious calcifications. SOFT TISSUES: No gross mass or suggestion of organomegaly. HARDWARE: None. BONES: No bone lesions or fracture. OTHER: No other significant finding. IMPRESSION: NO RADIOGRAPHIC EVIDENCE FOR ACUTE ABDOMINAL DISEASE. Reading location - IP/workstation name: [email or web address]
[2018-02-13 18:07] LABS: ABSOLUTE BASOPHILS # (AUTO) 0.1 10^3/uL (0.0-0.2); ABSOLUTE EOSINOPHILS # (AUTO) 0.3 10^3/uL (0.0-0.6); ABSOLUTE LYMPHOCYTES (AUTO) 1.9 10^3/uL (0.5-4.7); ABSOLUTE MONOCYTES (AUTO) 0.9 10^3/uL (0.1-1.4); ABSOLUTE NEUT (AUTO) 5.2 10^3/uL (1.7-8.2); BASOPHILS % (AUTO) 0.8 % (0-2); EOSINOPHILS % (AUTO) 3.7 % (0-6); HEMATOCRIT 37.3 % (36.0-47.0); HEMOGLOBIN 11.9 g/dL (12.0-15.5); LYMPHOCYTES % (AUTO) 22.5 % (13-45); MEAN CORPUSCULAR HEMOGLOBIN 23.3 pg (27.0-33.4); MEAN CORPUSCULAR VOLUME 73 fl (80-97); PLATELET COUNT 212 10^3/uL (150-450); RED BLOOD COUNT 5.13 10^6/uL (3.72-5.28); RED CELL DISTRIBUTION WIDTH 16.3 % (11.5-14.0); TOTAL CELLS COUNTED % (AUTO) 100 %; WHITE BLOOD COUNT 8.3 10^3/uL (4.0-10.5)
[2018-02-13] MEDS ORDERED: ACETAMINOPHEN 325 MG TABLET PO ONE (18:39)
[2018-02-13] MEDS ORDERED: ONDANSETRON 4 MG TAB.RAPDIS PO ONE (18:39)
[2018-02-13 19:26] LABS: APPEARANCE,URINE SLIGHTLY-CLOUDY; BILIRUBIN,URINE NEGATIVE (NEGATIVE); COLOR,URINE AMBER; GLUCOSE, URINE NEGATIVE (NEGATIVE); KETONES,URINE NEGATIVE (NEGATIVE); LEUKOCYTE ESTERASE,URINE NEGATIVE (NEGATIVE); NITRITE,URINE NEGATIVE (NEGATIVE); PROTEIN,URINE 30 mg/dL (NEGATIVE); URINE SPECIFIC GRAVITY 1.016
[2018-02-13 19:30] LABS: ALANINE AMINOTRANSFERASE 232 U/L (9-52); ALBUMIN 3.5 g/dL (3.5-5.0); ALKALINE PHOSPHATASE 849 U/L (38-126); ANION GAP 13 (5-19); ASPARTATE AMINO TRANSFERASE 483 U/L (14-36); BILIRUBIN,DIRECT 0.9 mg/dL (0.0-0.4); BLOOD UREA NITROGEN 21 mg/dL (7-20); CALCIUM 10.5 mg/dL (8.4-10.2); CARBON DIOXIDE 27 mmol/L (22-30); CHLORIDE 99 mmol/L (98-107); GLUCOSE 130 mg/dL (75-110); POTASSIUM 4.6 mmol/L (3.6-5.0); SODIUM 139.4 mmol/L (137-145); TOTAL PROTEIN 7.3 g/dL (6.3-8.2)
[2018-02-13] MEDS ORDERED: NORMAL SALINE 1000 ML 1,000 ML IV ONE ×3 (20:19→23:06)
[2018-02-13] MEDS ORDERED: HYDROMORPHONE HCL INJ/PF 2 MG/ML AMPULE IV ONE (20:47)
[2018-02-13] MEDS ORDERED: METOCLOPRAMIDE HCL INJ/PF 10 MG/2 ML SDV IV ONE (21:20)
--- NOTE | 2018-02-13 21:39 | RADIOLOGY REPORT (SQ) ---
EXAM DESCRIPTION: U/S ABDOMEN LIMITED W/O DOP COMPLETED DATE/TIME: 02/13/2018 9:27 pm REASON FOR STUDY: elevated lipase COMPARISON: None. TECHNIQUE: Dynamic and static grayscale images acquired of the abdomen and recorded on PACS. Additio nal selected color Doppler and spectral images recorded. LIMITATIONS: Body habitus and bowel gas. FINDINGS: PANCREAS: Not seen. LIVER: 17.5 cm. Normal echotexture. LIVER VASCULATURE: Normal directional flow of the main portal vein and hepatic veins. GALLBLADDER: Surgically absent. ULTRASOUND-DETECTED MONTOYA'S SIGN: Not applicable. INTRAHEPATIC DUCTS AND COMMON DUCT: CBD and intrahepatic ducts normal caliber. No filling defects. INFERIOR VENA CAVA: Not seen. AORTA: Not seen. RIGHT KIDNEY: Normal size 11 cm. Normal echogenicity. No solid or suspicious masses. No hydronephros is. No calcifications. PERITONEAL AND RIGHT PLEURAL SPACE: No ascites or effusions. OTHER: No other significant findings. IMPRESSION: No acute findings are seen. The pancreas was not seen because of body habitus and bowel gas. TECHNICAL DOCUMENTATION: JOB ID: [id number]- All Rights Reserved Reading location - IP/workstation name: [email or web address]
[2018-02-13] MEDS ORDERED: NORMAL SALINE 1000 ML 1,000 ML IV PRN ×2 (23:08→23:09)
--- NOTE | 2018-02-14 01:46 | RADIOLOGY REPORT (SQ) ---
EXAM DESCRIPTION: CT abdomen pelvis with IV contrast CLINICAL HISTORY: 47 years Female, generalized abd pain/elevated lipase COMPARISON: CR, same day. TECHNIQUE: IV contrast. Coronal and sagittal reformat. This exam was performed according to our departmental dose-optimization program, which includes automated exposure control, adjustment of the mA and/or kV according to patient size and/or use of iterative reconstruction technique. FINDINGS: Small strandy opacity of the left lower pulmonary lobe. Minimal fat stranding associated with the pancreatic head may indicate mild pancreatitis consistent with clinical history. Cholecystectomy clips. Normal appendix. 0.3 cm degenerative L5 retrolisthesis. Small L5-S1 disc bulge. Inferior thorax, liver, spleen, adrenals, renal system, gastrointestinal tract, pelvic organs, lymphatics, vasculature, and musculoskeleton appear otherwise unremarkable. IMPRESSION: 1. Mild pancreatitis pattern. 2. Small left lower lobar pneumonia/atelectasis.
[2018-02-14] MEDS ORDERED: ACETAMINOPHEN 325 MG TABLET PO PRN (02:25)
[2018-02-14] MEDS ORDERED: DEXTROSE 40% GEL 15 GM TUBE PO PRN ×2 (02:25)
[2018-02-14] MEDS ORDERED: IPRATROPIUM/ALBUTEROL 0.5-2.5 MG/3 ML AMPUL NEB PRN (02:25)
[2018-02-14] MEDS ORDERED: MAGNESIUM HYDROXIDE SUSP 30 ML UDCUP PO PRN (02:25)
[2018-02-14] MEDS ORDERED: GLUCAGON,HUMAN RECOMB 1 MG INJ SUBCUT PRN (02:25)
[2018-02-14] MEDS ORDERED: DEXTROSE 50%-WATER 25 GM/50 ML DISP.SYRIN IV PRN ×2 (02:25)
[2018-02-14] MEDS ORDERED: NORMAL SALINE 1000 ML 1,000 ML IV SCH (02:30)
--- NOTE | 2018-02-14 06:11 | PDOC H&P ---
History of Present Illness Admission Date/PCP: 02/14/18 02:16 MARIBEL SAN DO Patient complains of: Abdominal pain History of Present Illness: MADDIE LAWSON is a 47 year old female with history of morbid obesity, diabetes , necrotizing fasciitis. Patient presents with 24 hours of abdominal pain nausea without vomiting, no diarrhea no fever, no recent viral prodrome, no new medications. She is found to have an elevated ALT and AST, lipase but unremarkable bilirubin. CT abdomen suggests pancreatic inflammation. She is unable to tolerate p.o. and referred to the hospitalist for admission. She denies previous episode or alcohol. Past Medical History Cardiac Medical History: Reports: Congestive Heart Failure, Coronary Artery Disease, Myocardial Infarction, Hypertension Endocrine Medical History: Reports: Diabetes Mellitus Type 2, Hypothyroidism Musculoskeltal Medical History: Reports: Arthritis Past Surgical History Past Surgical History: Reports: Section, Cholecystectomy, Hysterectomy Social History Information Source: Patient, [facility] Records Lives with: Spouse/Significant other Smoking Status: Unknown if Ever Smoked Frequency of Alcohol Use: None Hx Recreational Drug Use: No Drugs: None Hx Prescription Drug Abuse: No - Advance Directive Resuscitation Status: Full Code Family History Family History: DM, Hypertension Parental Family History Reviewed: Yes Children Family History Reviewed: Yes Sibling(s) Family History Reviewed.: Yes Medication/Allergy Home Medications: No Home Medications 10/26/17 Allergies/Adverse Reactions: No Known Allergies Allergy (Verified 02/13/18 14:02) Review of Systems Constitutional: ABSENT: chills, fever(s), headache(s), weight gain, weight loss Eyes: ABSENT: visual disturbances Ears: ABSENT: hearing changes Cardiovascular: ABSENT: chest pain, dyspnea on exertion, edema, orthropnea, palpitations Respiratory: ABSENT: cough, hemoptysis Gastrointestinal: ABSENT: abdominal pain, constipation, diarrhea, hematemesis, hematochezia, nausea, vomiting Genitourinary: ABSENT: dysuria, hematuria Musculoskeletal: ABSENT: joint swelling Integumentary: ABSENT: rash, wounds Neurological: ABSENT: abnormal gait, abnormal speech, confusion, dizziness, focal weakness, syncope Psychiatric: ABSENT: anxiety, depression, homidical ideation, suicidal ideation Endocrine: ABSENT: cold intolerance, heat intolerance, polydipsia, polyuria Hematologic/Lymphatic: ABSENT: easy bleeding, easy bruising Physical Exam Vital Signs: Temp Pulse Resp BP Pulse Ox 98.2 F 60 14 153/80 H 97 05/09/18 03:00 02/13/18 14:12 02/14/18 04:31 02/14/18 04:31 02/14/18 04:31 Intake & Output 02/12/18 02/13/18 02/14/18 11:59 11:59 11:59 Intake Total 4000 Output Total 250 Balance 3750 General appearance: PRESENT: cooperative, mild distress, morbidly obese. ABSENT : disheveled Head exam: PRESENT: atraumatic, normocephalic Eye exam: PRESENT: conjunctiva pink, EOMI, PERRLA. ABSENT: scleral icterus Ear exam: PRESENT: normal external ear exam Mouth exam: PRESENT: moist, tongue midline Neck exam: ABSENT: carotid bruit, JVD, lymphadenopathy, thyromegaly Respiratory exam: PRESENT: clear to auscultation ashok. ABSENT: rales, rhonchi, wheezes Cardiovascular exam: PRESENT: RRR. ABSENT: diastolic murmur, rubs, systolic murmur Pulses: PRESENT: normal dorsalis pedis pul Vascular exam: PRESENT: normal capillary refill GI/Abdominal exam: PRESENT: distended, hyperactive bowel sounds, soft, tenderness. ABSENT: firm, guarding, hernia Rectal exam: PRESENT: deferred Extremities exam: PRESENT: full ROM. ABSENT: calf tenderness, clubbing, pedal edema Neurological exam: PRESENT: alert, awake, oriented to person, oriented to place , oriented to time, oriented to situation, CN II-XII grossly intact. ABSENT: motor sensory deficit Psychiatric exam: PRESENT: appropriate affect, normal mood. ABSENT: homicidal ideation, suicidal ideation Skin exam: PRESENT: dry, intact, warm. ABSENT: cyanosis, rash Results Impressions: KUB X-Ray 02/13/18 15:57 IMPRESSION: NO RADIOGRAPHIC EVIDENCE FOR ACUTE ABDOMINAL DISEASE. Abdomen Ultrasound 02/13/18 20:07 IMPRESSION: No acute findings are seen. The pancreas was not seen because of body habitus and bowel gas. Abdomen/Pelvis CT 02/13/18 22:03 IMPRESSION: 1. Mild pancreatitis pattern. 2. Small left lower lobar pneumonia/atelectasis. Assessment & Plan - Diagnosis (1) Acute pancreatitis Is this a current diagnosis for this admission?: Yes Plan: Most likely secondary to hypertriglyceridemia. Follow-up profile, chemistry, symptomatic management, IV fluid challenge and bowel rest (2) Acute renal failure Is this a current diagnosis for this admission?: Yes Plan: Secondary to prerenal azotemia, IV fluid challenge reevaluate chemistry (3) Elevated LFTs Is this a current diagnosis for this admission?: Yes Plan: Likely secondary to Gonzalez, obtain A1c strongly consider statin (4) Diabetes Is this a current diagnosis for this admission?: Yes Plan: Humalog sliding scale every 6 hours, obtain A1c - Time Time Spent: 50 to 70 Minutes - Inpatient Certification Medical Necessity: Need Close Monitoring Due to Risk of Patient Decompensation
[2018-02-14 06:26] LABS: ABSOLUTE BASOPHILS # (AUTO) 0.1 10^3/uL (0.0-0.2); ABSOLUTE EOSINOPHILS # (AUTO) 0.2 10^3/uL (0.0-0.6); ABSOLUTE NEUT (AUTO) 5.4 10^3/uL (1.7-8.2); BASOPHILS % (AUTO) 0.7 % (0-2); EOSINOPHILS % (AUTO) 2.5 % (0-6); HEMATOCRIT 34.5 % (36.0-47.0); HEMOGLOBIN 10.9 g/dL (12.0-15.5); LYMPHOCYTES % (AUTO) 23.2 % (13-45); MEAN CORPUSCULAR HEMOGLOBIN 23.1 pg (27.0-33.4); MEAN CORPUSCULAR HGB CONC 31.6 g/dL (32.0-36.0); MEAN CORPUSCULAR VOLUME 73 fl (80-97); MONOCYTES % (AUTO) 11.4 % (3-13); PLATELET COUNT 179 10^3/uL (150-450); RED BLOOD COUNT 4.71 10^6/uL (3.72-5.28); RED CELL DISTRIBUTION WIDTH 16.4 % (11.5-14.0); SEGMENTED NEUTROPHILS % (AUTO) 62.2 % (42-78); TOTAL CELLS COUNTED % (AUTO) 100 %; WHITE BLOOD COUNT 8.6 10^3/uL (4.0-10.5)
[2018-02-14 06:39] LABS: ALANINE AMINOTRANSFERASE 165 U/L (9-52); ALBUMIN 2.9 g/dL (3.5-5.0); ALKALINE PHOSPHATASE 695 U/L (38-126); ANION GAP 12 (5-19); ASPARTATE AMINO TRANSFERASE 367 U/L (14-36); BILIRUBIN,DIRECT 1.1 mg/dL (0.0-0.4); BILIRUBIN,TOTAL 1.1 mg/dL (0.2-1.3); BLOOD UREA NITROGEN 21 mg/dL (7-20); CALCIUM 8.9 mg/dL (8.4-10.2); CARBON DIOXIDE 25 mmol/L (22-30); CHLORIDE 105 mmol/L (98-107); GLUCOSE 118 mg/dL (75-110); LIPASE 1839.9 U/L (23-300); POTASSIUM 4.7 mmol/L (3.6-5.0); SODIUM 141.9 mmol/L (137-145); TOTAL PROTEIN 6.4 g/dL (6.3-8.2)
[2018-02-14] MEDS: HEPARIN SOD (PORCINE) 5,000 UNIT/ML 1 ML SYRINGE SUBCUT SCH ×3 (06:45→21:53)
[2018-02-14] MEDS ORDERED: OXYCODONE-ACETAMINOPHEN 5-325 MG TABLET PO PRN (11:02)
[2018-02-14] MEDS ORDERED: HYDRALAZINE HCL INJ/PF 20 MG/1 ML SDV IV PRN (11:10)
[2018-02-14] MEDS: HYDROMORPHONE HCL INJ/PF 2 MG/ML AMPULE IV PRN ×2 (11:13→21:42)
[2018-02-14] MEDS ORDERED: PANTOPRAZOLE SODIUM 40 MG VIAL IV SCH (11:15)
--- NOTE | 2018-02-14 11:27 | PDOC PROGRESS REPORT ---
Subjective Progress Note for:: 02/14/18 Reason For Visit: ACUTE PANCREATITIS, MORBID OBESITY Physical Exam Vital Signs: Temp Pulse Resp BP Pulse Ox 98.4 F 60 14 151/68 H 97 02/14/18 06:49 02/13/18 14:12 02/14/18 06:31 02/14/18 06:31 02/14/18 06:31 Intake & Output 02/13/18 02/14/18 02/15/18 06:59 06:59 06:59 Intake Total 4000 Output Total 250 Balance 3750 General appearance: PRESENT: no acute distress, cooperative, morbidly obese Head exam: PRESENT: atraumatic, normocephalic Eye exam: PRESENT: conjunctiva pink, EOMI, PERRLA Ear exam: PRESENT: normal external ear exam Mouth exam: PRESENT: moist Neck exam: PRESENT: full ROM. ABSENT: JVD, lymphadenopathy, tenderness Respiratory exam: PRESENT: clear to auscultation ashok Cardiovascular exam: PRESENT: RRR. ABSENT: diastolic murmur, systolic murmur Vascular exam: PRESENT: normal capillary refill GI/Abdominal exam: PRESENT: normal bowel sounds, soft, tenderness Extremities exam: PRESENT: full ROM, pedal edema Musculoskeletal exam: PRESENT: ambulatory Neurological exam: PRESENT: alert, awake, oriented to person, oriented to place , oriented to time, oriented to situation, CN II-XII grossly intact Psychiatric exam: PRESENT: appropriate affect, normal mood Skin exam: PRESENT: intact, normal color Results Laboratory Results: 02/14/18 06:10 02/14/18 06:10 02/14/18 02/14/18 02/14/18 06:10 06:10 06:10 WBC 8.6 RBC 4.71 Hgb 10.9 L Hct 34.5 L MCV 73 L MCH 23.1 L MCHC 31.6 L RDW 16.4 H Plt Count 179 Seg Neutrophils % 62.2 Lymphocytes % 23.2 Monocytes % 11.4 Eosinophils % 2.5 Basophils % 0.7 Absolute Neutrophils 5.4 Absolute Lymphocytes 2.0 Absolute Monocytes 1.0 Absolute Eosinophils 0.2 Absolute Basophils 0.1 Sodium 141.9 Potassium 4.7 Chloride 105 Carbon Dioxide 25 Anion Gap 12 BUN 21 H Creatinine 1.58 H Est GFR ( Amer) 42 L Est GFR (Non-Af Amer) 35 L Glucose 118 H Calcium 8.9 Magnesium 2.0 Total Bilirubin 1.1 AST 367 H ALT 165 H Alkaline Phosphatase 695 H Total Protein 6.4 Albumin 2.9 L Triglycerides 70 Lipase 1839.9 H Impressions: KUB X-Ray 02/13/18 15:57 IMPRESSION: NO RADIOGRAPHIC EVIDENCE FOR ACUTE ABDOMINAL DISEASE. Abdomen Ultrasound 02/13/18 20:07 IMPRESSION: No acute findings are seen. The pancreas was not seen because of body habitus and bowel gas. Abdomen/Pelvis CT 02/13/18 22:03 IMPRESSION: 1. Mild pancreatitis pattern. 2. Small left lower lobar pneumonia/atelectasis. Assessment & Plan - Diagnosis (1) Acute pancreatitis Qualifiers: Pancreatitis type: unspecified pancreatitis type Acute pancreatitis complication: unspecified Qualified Code(s): K85.90 - Acute pancreatitis without necrosis or infection, unspecified Is this a current diagnosis for this admission?: Yes Plan: Continue n.p.o. To place patient on Protonix IV and continue IV fluids. Pain management (2) Morbid obesity with BMI of 50.0-59.9, adult Is this a current diagnosis for this admission?: Yes Plan: Patient will benefit from gastric surgery to reduce weight and lifestyle modification (3) Elevated LFTs Is this a current diagnosis for this admission?: Yes Plan: Mild trending downward. Patient will have to be evaluated future for possible Gonzalez. Order hepatitis panel but less likely (4) Diabetes Qualifiers: Diabetes mellitus type: type 2 Diabetes mellitus care home insulin use: with intermediate frame tender use Diabetes mellitus complication status: with kidney complications Chronic kidney disease stage: stage 3 (moderate) Is this a current diagnosis for this admission?: Yes Plan: Continue current management. Patient admits that blood sugar control has been uncontrolled for some time (5) Hypertension Qualifiers: Hypertension type: essential hypertension Qualified Code(s): I10 - Essential (primary) hypertension Is this a current diagnosis for this admission?: Yes Plan: Stable however will add hydralazine for systolic blood pressure higher or equal to 180 or diastolic blood pressure higher or equal to 110 (6) PNA (pneumonia) Qualifiers: Pneumonia type: aspiration pneumonia Aspiration pneumonia type: unspecified Laterality: left Lung location: lower lobe of lung Qualified Code(s): J69.0 - Pneumonitis due to inhalation of food and vomit Is this a current diagnosis for this admission?: Yes Plan: This was an incidental finding noted on CT of the abdomen and pelvis. To start Zosyn (7) Chronic kidney disease (CKD) Qualifiers: Chronic kidney disease stage: stage 3 (moderate) Qualified Code(s): N18.3 - Chronic kidney disease, stage 3 (moderate) Is this a current diagnosis for this admission?: Yes Plan: Long-standing. Patient is aware. To trend - Time Time Spent with patient: 15-24 minutes Medications reviewed and adjusted accordingly: Yes Anticipated discharge: Home Within: within 72 hours - Inpatient Certification Based on my medical assessment, after consideration of the patient's comorbidities, presenting symptoms, or acuity I expect that the services needed warrant INPATIENT care.: Yes I certify that my determination is in accordance with my understanding of Medicare's requirements for reasonable and necessary INPATIENT services [42 CFR 412.3e].: Yes Medical Necessity: Need Close Monitoring Due to Risk of Patient Decompensation, Need For IV Fluids, Need for Pain Control, Need for IV Antibiotics
[2018-02-14] MEDS: PIPERACILLIN SODIUM/TAZOBACTAM 3.375 GM in NORMAL SALINE 100 ML IV SCH ×2 (12:33→18:32)
[2018-02-14] MEDS: NORMAL SALINE 1000 ML 1,000 ML IV PRN (12:34)
[2018-02-14] MEDS: DOCUSATE SODIUM 100 MG CAPSULE PO SCH ×2 (14:51→18:31)
[2018-02-14] MEDS: PANTOPRAZOLE SODIUM 40 MG VIAL IV SCH (18:33)
[2018-02-14] MEDS: ONDANSETRON HCL INJ/PF 4 MG/2 ML SDV IV PRN (22:51)
[2018-02-15] MEDS: PIPERACILLIN SODIUM/TAZOBACTAM 3.375 GM in NORMAL SALINE 100 ML IV SCH ×4 (00:49→18:02)
[2018-02-15] MEDS: NORMAL SALINE 1000 ML 1,000 ML IV PRN ×2 (00:49→10:56)
[2018-02-15] MEDS: HYDROMORPHONE HCL INJ/PF 2 MG/ML AMPULE IV PRN ×2 (02:45→07:29)
[2018-02-15] MEDS: HEPARIN SOD (PORCINE) 5,000 UNIT/ML 1 ML SYRINGE SUBCUT SCH (05:48)
[2018-02-15] MEDS: PANTOPRAZOLE SODIUM 40 MG VIAL IV SCH ×2 (07:32→18:02)
[2018-02-15] MEDS ORDERED: INSULIN LISPRO 100 UNIT/ML 3 ML VIAL SUBCUT PRN (07:38)
[2018-02-15] MEDS ORDERED: DEXTROSE 40% GEL 15 GM TUBE PO PRN ×2 (07:38)
[2018-02-15] MEDS ORDERED: DEXTROSE 50%-WATER 25 GM/50 ML DISP.SYRIN IV PRN ×2 (07:38)
[2018-02-15] MEDS ORDERED: GLUCAGON,HUMAN RECOMB 1 MG INJ IM PRN (07:38)
[2018-02-15] MEDS: ONDANSETRON HCL INJ/PF 4 MG/2 ML SDV IV PRN (07:42)
[2018-02-15] MEDS ORDERED: (PENDING PHARMACY ID) (Metoprolol Succinate [Toprol Xl 100 Mg Tablet] 150 MG) PO SCH (07:45)
[2018-02-15 08:57] LABS: ABSOLUTE BASOPHILS # (AUTO) 0.1 10^3/uL (0.0-0.2); ABSOLUTE EOSINOPHILS # (AUTO) 0.2 10^3/uL (0.0-0.6); ABSOLUTE NEUT (AUTO) 5.4 10^3/uL (1.7-8.2); BASOPHILS % (AUTO) 0.7 % (0-2); EOSINOPHILS % (AUTO) 2.6 % (0-6); HEMATOCRIT 32.3 % (36.0-47.0); HEMOGLOBIN 10.1 g/dL (12.0-15.5); LYMPHOCYTES % (AUTO) 22.9 % (13-45); MEAN CORPUSCULAR HEMOGLOBIN 22.8 pg (27.0-33.4); MEAN CORPUSCULAR HGB CONC 31.3 g/dL (32.0-36.0); MEAN CORPUSCULAR VOLUME 73 fl (80-97); MONOCYTES % (AUTO) 11.9 % (3-13); PLATELET COUNT 180 10^3/uL (150-450); RED BLOOD COUNT 4.44 10^6/uL (3.72-5.28); RED CELL DISTRIBUTION WIDTH 16.2 % (11.5-14.0); SEGMENTED NEUTROPHILS % (AUTO) 61.9 % (42-78); TOTAL CELLS COUNTED % (AUTO) 100 %; WHITE BLOOD COUNT 8.8 10^3/uL (4.0-10.5)
[2018-02-15 08:59] LABS: ALANINE AMINOTRANSFERASE 176 U/L (9-52); ALBUMIN 2.9 g/dL (3.5-5.0); ALKALINE PHOSPHATASE 808 U/L (38-126); ANION GAP 17 (5-19); ASPARTATE AMINO TRANSFERASE 305 U/L (14-36); BILIRUBIN,DIRECT 1.7 mg/dL (0.0-0.4); BILIRUBIN,TOTAL 1.8 mg/dL (0.2-1.3); BLOOD UREA NITROGEN 18 mg/dL (7-20); CALCIUM 9.3 mg/dL (8.4-10.2); CARBON DIOXIDE 22 mmol/L (22-30); CHLORIDE 107 mmol/L (98-107); GLUCOSE 97 mg/dL (75-110); LIPASE 779.5 U/L (23-300); POTASSIUM 4.5 mmol/L (3.6-5.0); SODIUM 145.5 mmol/L (137-145); TOTAL PROTEIN 6.4 g/dL (6.3-8.2)
[2018-02-15] MEDS: DOCUSATE SODIUM 100 MG CAPSULE PO SCH ×2 (09:21→18:02)
[2018-02-15] MEDS: PREGABALIN 75 MG CAPSULE PO SCH ×2 (09:21→23:36)
[2018-02-15] MEDS: METOPROLOL SUCCINATE 50 MG TAB.SR.24H PO SCH (09:22)
[2018-02-15] MEDS ORDERED: LEVOTHYROXINE SODIUM 0.075 MG TABLET PO SCH (10:00)
[2018-02-15] MEDS ORDERED: BISACODYL 5 MG TABEC PO ONE (13:50)
--- NOTE | 2018-02-15 14:03 | PDOC PROGRESS REPORT ---
Subjective Progress Note for:: 02/15/18 Subjective:: 47 yr old female with Insulin dependent Diabetes Morbid obesity Hypothyroidism Hypertension History of Necrotizing fasciitis She presented to the hospital on February 14, 2018 with abdominal pain and was found to have elevated lipase and LFTs. CT of the abdomen showed pancreatitis. She was made n.p.o. started on IV fluids and given Dilaudid for her abdominal pain. Her bilirubin is climbing today. Alk phos is elevated. I will get an MRCP to rule out biliary stones. Ultrasound of the abdomen did not show any CBD or intrahepatic biliary ductal dilatation. The patient is complaining of constipation and some epigastric abdominal discomfort. No nausea or vomiting. Reason For Visit: ACUTE PANCREATITIS, MORBID OBESITY Physical Exam Vital Signs: Temp Pulse Resp BP Pulse Ox 98.9 F 111 H 18 138/62 H 97 02/15/18 03:23 02/15/18 03:23 02/15/18 03:23 02/15/18 03:23 02/15/18 03:23 Intake & Output 02/14/18 02/15/18 02/16/18 06:59 06:59 06:59 Intake Total 4000 Output Total 250 400 Balance 3750 -400 Weight 144.6 kg General appearance: PRESENT: morbidly obese Head exam: PRESENT: atraumatic Eye exam: PRESENT: EOMI Ear exam: PRESENT: normal external ear exam Neck exam: ABSENT: tracheal deviation Respiratory exam: PRESENT: symmetrical, unlabored Cardiovascular exam: PRESENT: RRR GI/Abdominal exam: PRESENT: normal bowel sounds, soft Rectal exam: PRESENT: deferred Extremities exam: ABSENT: calf tenderness, pedal edema Neurological exam: PRESENT: alert, awake, oriented to person, oriented to place , oriented to time, oriented to situation Psychiatric exam: PRESENT: appropriate affect Skin exam: ABSENT: rash Results Laboratory Results: 02/14/18 06:10 02/14/18 06:10 Impressions: KUB X-Ray 02/13/18 15:57 IMPRESSION: NO RADIOGRAPHIC EVIDENCE FOR ACUTE ABDOMINAL DISEASE. Abdomen Ultrasound 02/13/18 20:07 IMPRESSION: No acute findings are seen. The pancreas was not seen because of body habitus and bowel gas. Abdomen/Pelvis CT 02/13/18 22:03 IMPRESSION: 1. Mild pancreatitis pattern. 2. Small left lower lobar pneumonia/atelectasis. Assessment & Plan - Diagnosis (1) Acute pancreatitis Qualifiers: Pancreatitis type: unspecified pancreatitis type Acute pancreatitis complication: unspecified Qualified Code(s): K85.90 - Acute pancreatitis without necrosis or infection, unspecified Is this a current diagnosis for this admission?: Yes Plan: Continue n.p.o., IV fluids, analgesics. Check MRCP. Monitor lipase levels. (2) Acute renal failure Is this a current diagnosis for this admission?: Yes Plan: Improving with IV fluids. Avoid nephrotoxic agents. (3) Elevated LFTs Is this a current diagnosis for this admission?: Yes Plan: As above. (4) Morbid obesity with BMI of 50.0-59.9, adult Is this a current diagnosis for this admission?: Yes Plan: Calorie control. (5) Diabetes Qualifiers: Diabetes mellitus type: type 2 Diabetes mellitus watermaster insulin use: with watermaster use Diabetes mellitus complication status: with kidney complications Chronic kidney disease stage: unspecified stage Is this a current diagnosis for this admission?: Yes Plan: Insulin sliding scale. (6) Hypertension Qualifiers: Hypertension type: essential hypertension Qualified Code(s): I10 - Essential (primary) hypertension Is this a current diagnosis for this admission?: Yes Plan: Continue metoprolol. (7) Hypothyroidism Is this a current diagnosis for this admission?: Yes Plan: Continue Synthroid (8) Pneumonia, aspiration Qualifiers: Aspiration pneumonia type: due to vomit Laterality: left Lung location: lower lobe of lung Qualified Code(s): J69.0 - Pneumonitis due to inhalation of food and vomit Is this a current diagnosis for this admission?: Yes Plan: Day 2 of Zosyn. - Time Time Spent with patient: 35 or more minutes
[2018-02-15] MEDS ORDERED: LORAZEPAM INJ 2 MG/1 ML VIAL ONE (17:04)
[2018-02-15] MEDS: LACTOBACILLUS ACIDOPHILUS 250 MG TAB PO SCH (18:02)
[2018-02-15] MEDS: SENNOSIDES/DOCUSATE 8.6-50 MG 1 EACH TABLET PO SCH (23:36)
[2018-02-16] MEDS: PIPERACILLIN SODIUM/TAZOBACTAM 3.375 GM in NORMAL SALINE 100 ML IV SCH ×2 (00:33→05:52)
[2018-02-16] MEDS: NORMAL SALINE 1000 ML 1,000 ML IV PRN ×2 (00:37→19:32)
[2018-02-16] MEDS: PANTOPRAZOLE SODIUM 40 MG VIAL IV SCH ×2 (05:53→19:34)
[2018-02-16 06:44] LABS: ALANINE AMINOTRANSFERASE 154 U/L (9-52); ALBUMIN 2.9 g/dL (3.5-5.0); ALKALINE PHOSPHATASE 798 U/L (38-126); ANION GAP 12 (5-19); ASPARTATE AMINO TRANSFERASE 306 U/L (14-36); BILIRUBIN,TOTAL 2.1 mg/dL (0.2-1.3); BLOOD UREA NITROGEN 16 mg/dL (7-20); CARBON DIOXIDE 24 mmol/L (22-30); CHLORIDE 110 mmol/L (98-107); GLUCOSE 114 mg/dL (75-110); LIPASE 522.6 U/L (23-300); POTASSIUM 4.2 mmol/L (3.6-5.0); SODIUM 146.3 mmol/L (137-145); TOTAL PROTEIN 6.5 g/dL (6.3-8.2)
[2018-02-16] MEDS: LEVOTHYROXINE SODIUM 0.075 MG TABLET PO SCH (06:46)
[2018-02-16 07:46] LABS: HEPATITIS A AB IGM Negative (Negative); HEPATITIS B CORE AB IGM Negative (Negative); HEPATITS B SURFACE ANTIGEN Negative (Negative)
[2018-02-16 08:00] LABS: HEPATITIS C VIRUS ANTIBODY 0.2 s/co ratio (0.0-0.9)
[2018-02-16] MEDS ORDERED: HYDROMORPHONE HCL INJ/PF 2 MG/ML AMPULE IV PRN (09:35)
[2018-02-16] MEDS: OXYCODONE HCL IR 5 MG TABLET PO PRN ×3 (10:43→20:32)
[2018-02-16] MEDS: PREGABALIN 75 MG CAPSULE PO SCH ×2 (10:45→22:18)
[2018-02-16] MEDS: METOPROLOL SUCCINATE 50 MG TAB.SR.24H PO SCH (10:46)
[2018-02-16] MEDS: LACTOBACILLUS ACIDOPHILUS 250 MG TAB PO SCH ×2 (10:46→19:29)
[2018-02-16] MEDS: DOCUSATE SODIUM 100 MG CAPSULE PO SCH ×2 (10:47→19:29)
[2018-02-16] MEDS: POLYETHYLENE GLYCOL 3350 POWDER 17 GM/1 PACKET PO SCH (10:48)
--- NOTE | 2018-02-16 14:32 | PDOC PROGRESS REPORT ---
Subjective Progress Note for:: 02/16/18 Subjective:: 47 yr old female with Insulin dependent Diabetes Morbid obesity Hypothyroidism Hypertension History of Necrotizing fasciitis She presented to the hospital on February 14, 2018 with abdominal pain and was found to have elevated lipase and LFTs. CT of the abdomen showed pancreatitis. She was made n.p.o. started on IV fluids and given Dilaudid for her abdominal pain. Her bilirubin is climbing today. Alk phos is elevated. Ultrasound of the abdomen did not show any CBD or intrahepatic biliary ductal dilatation. Constipation has resolved. She was unable to fit into the MRI machine due to morbid obesity. However, labs are improving. Abdominal pain has improved. We will start her on a clear liquid diet. Reason For Visit: ACUTE PANCREATITIS, MORBID OBESITY Physical Exam Vital Signs: Temp Pulse Resp BP Pulse Ox 99.1 F 67 20 153/63 H 98 02/16/18 08:15 02/16/18 11:01 02/16/18 11:01 02/16/18 08:15 02/16/18 11:01 Intake & Output 02/15/18 02/16/18 02/17/18 06:59 06:59 06:59 Intake Total 0 Output Total 400 900 Balance -400 -900 Weight 144.6 kg 150.8 kg General appearance: PRESENT: morbidly obese Head exam: PRESENT: normocephalic Eye exam: PRESENT: conjunctiva pink Ear exam: PRESENT: normal external ear exam Mouth exam: PRESENT: moist Neck exam: ABSENT: tracheal deviation Respiratory exam: PRESENT: clear to auscultation ashok, symmetrical, unlabored Cardiovascular exam: PRESENT: RRR GI/Abdominal exam: PRESENT: normal bowel sounds, soft. ABSENT: tenderness Rectal exam: PRESENT: deferred Gentrourinary exam: ABSENT: lacerations Extremities exam: ABSENT: pedal edema Neurological exam: PRESENT: alert, awake, oriented to person, oriented to place , oriented to time Psychiatric exam: PRESENT: appropriate affect Skin exam: PRESENT: other - L lower abdomen ulceration under the pannus with no evidence of infection or purulence- no erythema of the surrounding skin Results Laboratory Results: 02/15/18 07:55 02/16/18 06:22 02/16/18 06:22 Sodium 146.3 H Potassium 4.2 Chloride 110 H Carbon Dioxide 24 Anion Gap 12 BUN 16 Creatinine 1.29 H Est GFR ( Amer) 53 L Est GFR (Non-Af Amer) 44 L Glucose 114 H Calcium 9.0 Magnesium 2.1 Total Bilirubin 2.1 H AST 306 H ALT 154 H Alkaline Phosphatase 798 H Total Protein 6.5 Albumin 2.9 L Lipase 522.6 H Impressions: KUB X-Ray 02/13/18 15:57 IMPRESSION: NO RADIOGRAPHIC EVIDENCE FOR ACUTE ABDOMINAL DISEASE. Abdomen Ultrasound 02/13/18 20:07 IMPRESSION: No acute findings are seen. The pancreas was not seen because of body habitus and bowel gas. Abdomen/Pelvis CT 02/13/18 22:03 IMPRESSION: 1. Mild pancreatitis pattern. 2. Small left lower lobar pneumonia/atelectasis. Assessment & Plan - Diagnosis (1) Acute pancreatitis Qualifiers: Pancreatitis type: unspecified pancreatitis type Acute pancreatitis complication: unspecified Qualified Code(s): K85.90 - Acute pancreatitis without necrosis or infection, unspecified Is this a current diagnosis for this admission?: Yes Plan: Improving. Start clear liquid diet. Monitor lipase and pain levels. (2) Acute renal failure Is this a current diagnosis for this admission?: Yes Plan: Improving with IV fluids. Avoid nephrotoxic agents. (3) Elevated LFTs Is this a current diagnosis for this admission?: Yes Plan: Likely secondary to MOSLEY. Viral hepatitis panel pending. (4) Morbid obesity with BMI of 50.0-59.9, adult Is this a current diagnosis for this admission?: Yes Plan: Calorie control. (5) Diabetes Qualifiers: Diabetes mellitus type: type 2 Diabetes mellitus care home insulin use: with terminal gauger use Diabetes mellitus complication status: with kidney complications Chronic kidney disease stage: unspecified stage Is this a current diagnosis for this admission?: Yes Plan: Insulin sliding scale. (6) Hypertension Qualifiers: Hypertension type: essential hypertension Qualified Code(s): I10 - Essential (primary) hypertension Is this a current diagnosis for this admission?: Yes Plan: Continue metoprolol. (7) Hypothyroidism Is this a current diagnosis for this admission?: Yes Plan: Continue Synthroid (8) Pneumonia, aspiration Qualifiers: Aspiration pneumonia type: due to vomit Laterality: left Lung location: lower lobe of lung Qualified Code(s): J69.0 - Pneumonitis due to inhalation of food and vomit Is this a current diagnosis for this admission?: Yes Plan: This was ruled out. Stop antibiotics. (9) Open abdominal wall wound Qualifiers: Encounter type: subsequent encounter Qualified Code(s): S31.109D - Unspecified open wound of abdominal wall, unspecified quadrant without penetration into peritoneal cavity, subsequent encounter Is this a current diagnosis for this admission?: Yes Plan: No evidence of infection. Continue wound care - Time Time Spent with patient: 35 or more minutes
[2018-02-16] MEDS: SENNOSIDES/DOCUSATE 8.6-50 MG 1 EACH TABLET PO SCH (22:24)
[2018-02-17] MEDS: PANTOPRAZOLE SODIUM 40 MG VIAL IV SCH (06:22)
[2018-02-17] MEDS: LEVOTHYROXINE SODIUM 0.075 MG TABLET PO SCH (06:22)
[2018-02-17] MEDS: NORMAL SALINE 1000 ML 1,000 ML IV PRN (06:24)
[2018-02-17 07:20] LABS: ALANINE AMINOTRANSFERASE 158 U/L (9-52); ALBUMIN 2.8 g/dL (3.5-5.0); ALKALINE PHOSPHATASE 866 U/L (38-126); ANION GAP 8 (5-19); ASPARTATE AMINO TRANSFERASE 353 U/L (14-36); BILIRUBIN,TOTAL 2.1 mg/dL (0.2-1.3); BLOOD UREA NITROGEN 13 mg/dL (7-20); CARBON DIOXIDE 25 mmol/L (22-30); CHLORIDE 111 mmol/L (98-107); GLUCOSE 113 mg/dL (75-110); LIPASE 463.9 U/L (23-300); POTASSIUM 3.9 mmol/L (3.6-5.0); SODIUM 143.8 mmol/L (137-145); TOTAL PROTEIN 6.4 g/dL (6.3-8.2)
[2018-02-17] MEDS: METOPROLOL SUCCINATE 50 MG TAB.SR.24H PO SCH (10:08)
[2018-02-17] MEDS: PREGABALIN 75 MG CAPSULE PO SCH ×2 (10:08→21:12)
[2018-02-17] MEDS: DOCUSATE SODIUM 100 MG CAPSULE PO SCH ×2 (10:08→18:31)
[2018-02-17] MEDS: LACTOBACILLUS ACIDOPHILUS 250 MG TAB PO SCH ×2 (10:16→18:31)
[2018-02-17] MEDS: POLYETHYLENE GLYCOL 3350 POWDER 17 GM/1 PACKET PO SCH (11:11)
[2018-02-17] MEDS: OXYCODONE HCL IR 5 MG TABLET PO PRN ×2 (11:14→18:11)
--- NOTE | 2018-02-17 13:22 | PDOC PROGRESS REPORT ---
Subjective Progress Note for:: 02/17/18 Subjective:: 47 yr old female with Insulin dependent Diabetes Morbid obesity Hypothyroidism Hypertension History of Necrotizing fasciitis She presented to the hospital on February 14, 2018 with abdominal pain and was found to have elevated lipase and LFTs. CT of the abdomen showed pancreatitis. She was made n.p.o. started on IV fluids and given Dilaudid for her abdominal pain. Her bilirubin is climbing today. Alk phos is elevated. Ultrasound of the abdomen did not show any CBD or intrahepatic biliary ductal dilatation. had some abdominal pain this morning after drinking broth. Will hold off advancing diet for now. Reason For Visit: ACUTE PANCREATITIS, MORBID OBESITY Physical Exam Vital Signs: Temp Pulse Resp BP Pulse Ox 98.4 F 68 16 144/63 H 95 02/17/18 07:38 02/17/18 07:38 02/17/18 07:38 02/17/18 07:38 02/17/18 07:38 Intake & Output 02/16/18 02/17/18 02/18/18 06:59 06:59 06:59 Intake Total 0 240 Output Total 900 450 Balance -900 -210 Weight 150.8 kg 148.7 kg 148.7 kg General appearance: PRESENT: morbidly obese Head exam: PRESENT: normocephalic Eye exam: PRESENT: EOMI Ear exam: PRESENT: normal external ear exam Mouth exam: PRESENT: moist Neck exam: ABSENT: tracheal deviation Respiratory exam: PRESENT: symmetrical, unlabored. ABSENT: crackles Cardiovascular exam: PRESENT: RRR GI/Abdominal exam: PRESENT: normal bowel sounds, soft, tenderness Rectal exam: PRESENT: deferred Extremities exam: ABSENT: pedal edema Neurological exam: PRESENT: alert, awake, oriented to person, oriented to place , oriented to time, oriented to situation Psychiatric exam: PRESENT: appropriate affect Skin exam: PRESENT: other - wound under pannus on abdomen- no evidence of infection Results Laboratory Results: 02/15/18 07:55 02/17/18 06:44 02/17/18 06:44 Sodium 143.8 Potassium 3.9 Chloride 111 H Carbon Dioxide 25 Anion Gap 8 BUN 13 Creatinine 1.10 Est GFR ( Amer) > 60 Est GFR (Non-Af Amer) 53 L Glucose 113 H Calcium 9.0 Total Bilirubin 2.1 H AST 353 H ALT 158 H Alkaline Phosphatase 866 H Total Protein 6.4 Albumin 2.8 L Lipase 463.9 H Impressions: KUB X-Ray 02/13/18 15:57 IMPRESSION: NO RADIOGRAPHIC EVIDENCE FOR ACUTE ABDOMINAL DISEASE. Abdomen Ultrasound 02/13/18 20:07 IMPRESSION: No acute findings are seen. The pancreas was not seen because of body habitus and bowel gas. Abdomen/Pelvis CT 02/13/18 22:03 IMPRESSION: 1. Mild pancreatitis pattern. 2. Small left lower lobar pneumonia/atelectasis. Assessment & Plan - Diagnosis (1) Acute pancreatitis Qualifiers: Pancreatitis type: unspecified pancreatitis type Acute pancreatitis complication: unspecified Qualified Code(s): K85.90 - Acute pancreatitis without necrosis or infection, unspecified Is this a current diagnosis for this admission?: Yes Plan: Continue clear liquid diet. Monitor lipase and pain levels. Analegesics prn. (2) Acute renal failure Is this a current diagnosis for this admission?: Yes Plan: Improved with IV fluids. Avoid nephrotoxic agents. (3) Elevated LFTs Is this a current diagnosis for this admission?: Yes Plan: Likely secondary to MOSLEY. Viral hepatitis panel negative (4) Morbid obesity with BMI of 50.0-59.9, adult Is this a current diagnosis for this admission?: Yes Plan: Calorie control. (5) Diabetes Qualifiers: Diabetes mellitus type: type 2 Diabetes mellitus custodial insulin use: with custodial use Diabetes mellitus complication status: with kidney complications Chronic kidney disease stage: unspecified stage Is this a current diagnosis for this admission?: Yes Plan: Insulin sliding scale. (6) Hypertension Qualifiers: Hypertension type: essential hypertension Qualified Code(s): I10 - Essential (primary) hypertension Is this a current diagnosis for this admission?: Yes Plan: Continue metoprolol. (7) Hypothyroidism Is this a current diagnosis for this admission?: Yes Plan: Continue Synthroid (8) Pneumonia, aspiration Qualifiers: Aspiration pneumonia type: due to vomit Laterality: left Lung location: lower lobe of lung Qualified Code(s): J69.0 - Pneumonitis due to inhalation of food and vomit Is this a current diagnosis for this admission?: Yes Plan: This was ruled out. (9) Open abdominal wall wound Qualifiers: Encounter type: subsequent encounter Qualified Code(s): S31.109D - Unspecified open wound of abdominal wall, unspecified quadrant without penetration into peritoneal cavity, subsequent encounter Is this a current diagnosis for this admission?: Yes Plan: No evidence of infection. Continue wound care - Time Time Spent with patient: 25-34 minutes
[2018-02-17] MEDS ORDERED: INSULIN LISPRO 100 UNIT/ML 3 ML VIAL SUBCUT PRN (18:46)
[2018-02-17] MEDS: SERTRALINE HCL 50 MG TABLET PO SCH (21:12)
[2018-02-17] MEDS: SENNOSIDES/DOCUSATE 8.6-50 MG 1 EACH TABLET PO SCH (22:59)
[2018-02-18] MEDS: LEVOTHYROXINE SODIUM 0.075 MG TABLET PO SCH (06:34)
[2018-02-18 07:00] LABS: ABSOLUTE BASOPHILS # (AUTO) 0.1 10^3/uL (0.0-0.2); ABSOLUTE EOSINOPHILS # (AUTO) 0.3 10^3/uL (0.0-0.6); ABSOLUTE LYMPHOCYTES (AUTO) 1.8 10^3/uL (0.5-4.7); ABSOLUTE MONOCYTES (AUTO) 0.9 10^3/uL (0.1-1.4); ABSOLUTE NEUT (AUTO) 3.2 10^3/uL (1.7-8.2); BASOPHILS % (AUTO) 0.9 % (0-2); EOSINOPHILS % (AUTO) 4.6 % (0-6); HEMATOCRIT 30.1 % (36.0-47.0); HEMOGLOBIN 9.6 g/dL (12.0-15.5); LYMPHOCYTES % (AUTO) 29.2 % (13-45); MEAN CORPUSCULAR VOLUME 72 fl (80-97); MONOCYTES % (AUTO) 14.3 % (3-13); PLATELET COUNT 178 10^3/uL (150-450); RED BLOOD COUNT 4.19 10^6/uL (3.72-5.28); RED CELL DISTRIBUTION WIDTH 17.1 % (11.5-14.0); TOTAL CELLS COUNTED % (AUTO) 100 %; WHITE BLOOD COUNT 6.2 10^3/uL (4.0-10.5)
[2018-02-18 07:29] LABS: ALANINE AMINOTRANSFERASE 191 U/L (9-52); ALBUMIN 2.6 g/dL (3.5-5.0); ALKALINE PHOSPHATASE 905 U/L (38-126); ANION GAP 13 (5-19); ASPARTATE AMINO TRANSFERASE 456 U/L (14-36); BILIRUBIN,DIRECT 2.4 mg/dL (0.0-0.4); BILIRUBIN,TOTAL 2.6 mg/dL (0.2-1.3); BLOOD UREA NITROGEN 12 mg/dL (7-20); CALCIUM 8.9 mg/dL (8.4-10.2); CARBON DIOXIDE 21 mmol/L (22-30); CHLORIDE 109 mmol/L (98-107); GLUCOSE 117 mg/dL (75-110); LIPASE 533.6 U/L (23-300); POTASSIUM 4.1 mmol/L (3.6-5.0); SODIUM 142.7 mmol/L (137-145); TOTAL PROTEIN 5.8 g/dL (6.3-8.2)
[2018-02-18] MEDS: DOCUSATE SODIUM 100 MG CAPSULE PO SCH ×2 (11:28→18:14)
[2018-02-18] MEDS: METOPROLOL SUCCINATE 50 MG TAB.SR.24H PO SCH (11:29)
[2018-02-18] MEDS: POLYETHYLENE GLYCOL 3350 POWDER 17 GM/1 PACKET PO SCH (11:29)
[2018-02-18] MEDS: PREGABALIN 75 MG CAPSULE PO SCH ×2 (11:31→22:18)
[2018-02-18] MEDS: LACTOBACILLUS ACIDOPHILUS 250 MG TAB PO SCH ×2 (11:32→18:14)
--- NOTE | 2018-02-18 11:56 | PDOC PROGRESS REPORT ---
Subjective Progress Note for:: 02/18/18 Subjective:: 47 yr old female with Insulin dependent Diabetes Morbid obesity Hypothyroidism Hypertension History of Necrotizing fasciitis She presented to the hospital on February 14, 2018 with abdominal pain and was found to have elevated lipase and LFTs. CT of the abdomen showed pancreatitis. She was made n.p.o. started on IV fluids and given Dilaudid for her abdominal pain. Ultrasound of the abdomen on admission did not show any CBD or intrahepatic biliary ductal dilatation. Unable to get MRCP due to body habitus. Abdominal pain ad lipase level improving. Will advance diet and monitor Reason For Visit: ACUTE PANCREATITIS, MORBID OBESITY Physical Exam Vital Signs: Temp Pulse Resp BP Pulse Ox 98.5 F 63 16 151/75 H 96 02/18/18 11:27 02/18/18 11:27 02/18/18 11:27 02/18/18 11:27 02/18/18 11:27 Intake & Output 02/17/18 02/18/18 02/19/18 06:59 06:59 06:59 Intake Total 240 520 Output Total 450 Balance -210 520 Weight 148.7 kg 148.7 kg General appearance: PRESENT: morbidly obese Head exam: PRESENT: normocephalic Eye exam: PRESENT: PERRLA Ear exam: PRESENT: normal external ear exam Mouth exam: PRESENT: moist Neck exam: ABSENT: tracheal deviation Respiratory exam: PRESENT: symmetrical, unlabored Cardiovascular exam: PRESENT: RRR GI/Abdominal exam: PRESENT: normal bowel sounds, soft. ABSENT: tenderness Rectal exam: PRESENT: deferred Extremities exam: ABSENT: pedal edema Neurological exam: PRESENT: alert, awake, oriented to person, oriented to place , oriented to time, oriented to situation Psychiatric exam: PRESENT: appropriate affect Skin exam: PRESENT: other - wound under pannus L abdomen. ABSENT: rash Results Laboratory Results: 02/18/18 06:34 02/18/18 06:34 02/18/18 02/18/18 06:34 06:34 WBC 6.2 RBC 4.19 Hgb 9.6 L Hct 30.1 L MCV 72 L MCH 23.0 L MCHC 32.0 RDW 17.1 H Plt Count 178 Seg Neutrophils % 51.0 Lymphocytes % 29.2 Monocytes % 14.3 H Eosinophils % 4.6 Basophils % 0.9 Absolute Neutrophils 3.2 Absolute Lymphocytes 1.8 Absolute Monocytes 0.9 Absolute Eosinophils 0.3 Absolute Basophils 0.1 Sodium 142.7 Potassium 4.1 Chloride 109 H Carbon Dioxide 21 L Anion Gap 13 BUN 12 Creatinine 0.90 Est GFR ( Amer) > 60 Est GFR (Non-Af Amer) > 60 Glucose 117 H Calcium 8.9 Total Bilirubin 2.6 H AST 456 H ALT 191 H Alkaline Phosphatase 905 H Total Protein 5.8 L Albumin 2.6 L Lipase 533.6 H Impressions: KUB X-Ray 02/13/18 15:57 IMPRESSION: NO RADIOGRAPHIC EVIDENCE FOR ACUTE ABDOMINAL DISEASE. Abdomen Ultrasound 02/13/18 20:07 IMPRESSION: No acute findings are seen. The pancreas was not seen because of body habitus and bowel gas. Abdomen/Pelvis CT 02/13/18 22:03 IMPRESSION: 1. Mild pancreatitis pattern. 2. Small left lower lobar pneumonia/atelectasis. Assessment & Plan - Diagnosis (1) Acute pancreatitis Qualifiers: Pancreatitis type: unspecified pancreatitis type Acute pancreatitis complication: unspecified Qualified Code(s): K85.90 - Acute pancreatitis without necrosis or infection, unspecified Is this a current diagnosis for this admission?: Yes Plan: Try low fat full liquid diet. Start pancreatic enzymes Monitor lipase and pain levels. Analegesics prn. (2) Acute renal failure Is this a current diagnosis for this admission?: Yes Plan: Resolved with IV fluids. Avoid nephrotoxic agents. (3) Elevated LFTs Is this a current diagnosis for this admission?: Yes Plan: Likely secondary to MOSLEY. Viral hepatitis panel negative. Recheck US abdomen ? passed biliary stone (4) Morbid obesity with BMI of 50.0-59.9, adult Is this a current diagnosis for this admission?: Yes Plan: Calorie control. (5) Diabetes Qualifiers: Diabetes mellitus type: type 2 Diabetes mellitus chcf insulin use: with chcf use Diabetes mellitus complication status: with kidney complications Chronic kidney disease stage: unspecified stage Is this a current diagnosis for this admission?: Yes Plan: Insulin sliding scale. (6) Hypertension Qualifiers: Hypertension type: essential hypertension Qualified Code(s): I10 - Essential (primary) hypertension Is this a current diagnosis for this admission?: Yes Plan: Continue metoprolol. (7) Hypothyroidism Is this a current diagnosis for this admission?: Yes Plan: Continue Synthroid (8) Pneumonia, aspiration Qualifiers: Aspiration pneumonia type: due to vomit Laterality: left Lung location: lower lobe of lung Qualified Code(s): J69.0 - Pneumonitis due to inhalation of food and vomit Is this a current diagnosis for this admission?: Yes Plan: This was ruled out. (9) Open abdominal wall wound Qualifiers: Encounter type: subsequent encounter Qualified Code(s): S31.109D - Unspecified open wound of abdominal wall, unspecified quadrant without penetration into peritoneal cavity, subsequent encounter Is this a current diagnosis for this admission?: Yes Plan: No evidence of infection. Continue wound care - Time Time Spent with patient: 25-34 minutes
--- NOTE | 2018-02-18 12:11 | RADIOLOGY REPORT (SQ) ---
EXAM DESCRIPTION: U/S ABDOMEN LIMITED W/O DOP COMPLETED DATE/TIME: 02/18/2018 12:01 pm REASON FOR STUDY: ? CBD dilatation abnormal LFTs COMPARISON: CT from 02/14/2018 and ultrasound from 02/13/2018 TECHNIQUE: Dynamic and static grayscale images acquired of the right upper quadrant and recorded on PACS. Additional selected color Doppler and spectral images recorded. LIMITATIONS: Study limited due to acoustical interference from fat or from air in the bowel. FINDINGS: PANCREAS: Grossly normal. LIVER: Echotexture is coarse with increased echogenicity consistent with fatty infiltration. No mass es. LIVER VASCULATURE: Normal directional flow of the main portal vein and hepatic veins. GALLBLADDER: Surgically absent. ULTRASOUND-DETECTED MONTOYA'S SIGN: Negative. INTRAHEPATIC DUCTS AND COMMON DUCT: CBD and intrahepatic ducts normal caliber. No filling defects. INFERIOR VENA CAVA: Normal flow. AORTA: No aneurysm. RIGHT KIDNEY: Normal size. Normal echogenicity. No solid or suspicious masses. No hydronephros is. No calcifications. PERITONEAL CAVITY AND RIGHT PLEURAL SPACE: No ascites or effusions. OTHER: No other significant finding. IMPRESSION: HEPATIC STEATOSIS. OTHERWISE UNREMARKABLE RIGHT UPPER QUADRANT ULTRASOUND STATUS POST C HOLECYSTECTOMY. TECHNICAL DOCUMENTATION: JOB ID: [id number] [employer]- All Rights Reserved Reading location - IP/workstation name: [email or web address]
[2018-02-18] MEDS: LIPASE/PROTEASE/AMYLASE 1 CAP CAPSULE.DR PO SCH (16:29)
[2018-02-18] MEDS: SENNOSIDES/DOCUSATE 8.6-50 MG 1 EACH TABLET PO SCH (22:18)
[2018-02-18] MEDS: OXYCODONE HCL IR 5 MG TABLET PO PRN (22:18)
[2018-02-18] MEDS: SERTRALINE HCL 50 MG TABLET PO SCH (23:23)
[2018-02-19] MEDS: OXYCODONE HCL IR 5 MG TABLET PO PRN (03:01)
[2018-02-19] MEDS: LEVOTHYROXINE SODIUM 0.075 MG TABLET PO SCH (06:12)
[2018-02-19 06:50] LABS: ALANINE AMINOTRANSFERASE 225 U/L (9-52); ALBUMIN 2.6 g/dL (3.5-5.0); ALKALINE PHOSPHATASE 923 U/L (38-126); ANION GAP 16 (5-19); ASPARTATE AMINO TRANSFERASE 504 U/L (14-36); BILIRUBIN,TOTAL 3.2 mg/dL (0.2-1.3); BLOOD UREA NITROGEN 9 mg/dL (7-20); CALCIUM 8.8 mg/dL (8.4-10.2); CARBON DIOXIDE 19 mmol/L (22-30); CHLORIDE 105 mmol/L (98-107); GLUCOSE 128 mg/dL (75-110); POTASSIUM 3.9 mmol/L (3.6-5.0); SODIUM 140.3 mmol/L (137-145); TOTAL PROTEIN 5.8 g/dL (6.3-8.2)
[2018-02-19] MEDS: LIPASE/PROTEASE/AMYLASE 1 CAP CAPSULE.DR PO SCH (08:34)
[2018-02-19] MEDS: POLYETHYLENE GLYCOL 3350 POWDER 17 GM/1 PACKET PO SCH (10:12)
[2018-02-19] MEDS: METOPROLOL SUCCINATE 50 MG TAB.SR.24H PO SCH (10:12)
[2018-02-19] MEDS: PREGABALIN 75 MG CAPSULE PO SCH (10:12)
[2018-02-19] MEDS: LACTOBACILLUS ACIDOPHILUS 250 MG TAB PO SCH (10:12)
[2018-02-19] MEDS: DOCUSATE SODIUM 100 MG CAPSULE PO SCH (10:12)
[2018-02-19] MEDS ORDERED: ONDANSETRON 4 MG TAB.RAPDIS PO PRN (10:45)
[2018-02-19] MEDS: ONDANSETRON HCL INJ/PF 4 MG/2 ML SDV IV PRN (10:57)
--- NOTE | 2018-02-19 11:55 | RADIOLOGY REPORT (SQ) ---
EXAM DESCRIPTION: FOREARM LEFT COMPLETED DATE/TIME: 02/19/2018 11:22 am REASON FOR STUDY: pain, trauma COMPARISON: Left hand films same date NUMBER OF VIEWS: Two views. TECHNIQUE: Two radiographic images acquired of the left forearm, including elbow and wrist in at [address] one projection. LIMITATIONS: None. FINDINGS: MINERALIZATION: Normal. BONES: No acute fracture. No worrisome bone lesions. SOFT TISSUES: No obvious swelling or foreign body. OTHER: No other significant finding. IMPRESSION: NEGATIVE STUDY OF THE LEFT FOREARM. NO RADIOGRAPHIC EVIDENCE OF ACUTE INJURY. TECHNICAL DOCUMENTATION: JOB ID: [id number]- All Rights Reserved Reading location - IP/workstation name: [email or web address]
--- NOTE | 2018-02-19 11:56 | RADIOLOGY REPORT (SQ) ---
EXAM DESCRIPTION: HAND LEFT 3 VIEWS COMPLETED DATE/TIME: 02/19/2018 11:22 am REASON FOR STUDY: pain, trauma COMPARISON: Left forearm two views same date EXAM PARAMETERS: NUMBER OF VIEWS: Three views. TECHNIQUE: AP, lateral and oblique radiographic images acquired of the left hand. LIMITATIONS: None. FINDINGS: MINERALIZATION: Normal. BONES: No acute fracture or dislocation. No worrisome bone lesions. JOINTS: No effusions. SOFT TISSUES: Left ulnar wrist region soft tissue swelling. No foreign body. OTHER: No other significant finding. IMPRESSION: Left ulnar wrist region soft tissue swelling. No radiopaque foreign body. No soft tiss ue gas. No gross fracture TECHNICAL DOCUMENTATION: JOB ID: [id number] [employer]- All Rights Reserved Reading location - IP/workstation name: [email or web address]
--- NOTE | 2018-02-19 14:20 | PDOC DISCHARGE SUMMARY ---
General - Admit/Disc Date/PCP Admission Date/Primary Care Provider: 02/14/18 02:16 MARIBEL SAN, Discharge Date: 02/19/18 - Discharge Diagnosis (1) Acute pancreatitis Is this a current diagnosis for this admission?: Yes (2) Acute renal failure Is this a current diagnosis for this admission?: Yes (3) Elevated LFTs Is this a current diagnosis for this admission?: Yes (4) Morbid obesity with BMI of 50.0-59.9, adult Is this a current diagnosis for this admission?: Yes (5) Diabetes Is this a current diagnosis for this admission?: Yes (6) Hypertension Is this a current diagnosis for this admission?: Yes (7) Hypothyroidism Is this a current diagnosis for this admission?: Yes (8) Pneumonia, aspiration Is this a current diagnosis for this admission?: Yes (9) Open abdominal wall wound Is this a current diagnosis for this admission?: Yes - Additional Information Resuscitation Status: Full Code Discharge Diet: Other (Comments) - Low fat diet, Diabetic Discharge Activity: Activity As Tolerated Prescriptions: Ondansetron [Zofran Odt 4 mg Tablet] 4 mg PO Q4HP PRN 5 Days #20 tab.rapdis PRN Reason: Oxycodone HCl [Oxy-Ir 5 mg Tablet] 5 mg PO Q4HP PRN 3 Days #15 tablet PRN Reason: Lactobacillus Acidophilus [Bacid 250 mg Tablet] 500 mg PO BID 5 Days #10 tab Lipase/Protease/Amylase [Pancreaze-10 Capsule.dr] 1 cap PO TID 30 Days #120 capsule. Home Medications: Furosemide [Lasix 40 mg Tablet] 40 mg PO DAILY 02/14/18 Insulin Aspart [Novolog Flexpen] 5 unit SQ MEALS 02/14/18 Insulin Glargine,Hum.rec.anlog [Lantus Solostar] 12 unit SQ QHS 02/14/18 Levothyroxine Sodium [Synthroid 0.075 mg Tablet] 0.075 mg PO DAILY 02/14/18 Metoprolol Succinate [Toprol XL 100 mg Tablet] 150 mg PO DAILY 02/14/18 Pregabalin [Lyrica 75 mg Capsule] 75 mg PO Q12 02/14/18 Docusate Sodium [Colace 100 mg Capsule] 100 mg PO BID capsule 02/19/18 Lactobacillus Acidophilus [Bacid 250 mg Tablet] 500 mg PO BID 5 Days #10 tab Lipase/Protease/Amylase [Pancreaze-10 Capsule.] 1 cap PO TID 30 Days #120 capsule. 02/19/18 Ondansetron [Zofran Odt 4 mg Tablet] 4 mg PO Q4HP PRN 5 Days #20 tab.rapdis Oxycodone HCl [Oxy-Ir 5 mg Tablet] 5 mg PO Q4HP PRN 3 Days #15 tablet 02/19/18 Polyethylene Glycol 3350 [Miralax Powder 17 gm/Packet] 17 gm PO DAILY powd.pack 02/19/18 Sertraline HCl [Zoloft 50 mg Tablet] 50 mg PO QHS tablet 02/19/18 History of Present Illness History of Present Illness: 47 yr old female with Insulin dependent Diabetes Morbid obesity Hypothyroidism Hypertension History of Necrotizing fasciitis She presented to the hospital on February 14, 2018 with abdominal pain and was found to have elevated lipase and LFTs. CT of the abdomen showed pancreatitis. She was made n.p.o. started on IV fluids and given Dilaudid for her abdominal pain. Ultrasound of the abdomen did not show any CBD or intrahepatic biliary ductal dilatation. She has been tolerating a diet upgrade. The patient complained of L wrist pain and swelling since she hit it against the side of the bed. Xrays showed no fracture or foreign body. She is stable for discharge on a low fat diabetic diet. Prescriptions were given for Oxycodone IR 5 mg prn 15 tablets Creon TID AC for 4 weeks Follow up with PCP in 1 week. Continue wound care with dressing changes as before with Satya. Hospital Course Hospital Course: As above Physical Exam Vital Signs: Temp Pulse Resp BP Pulse Ox 98.9 F 63 21 H 141/52 H 90 L 02/19/18 08:34 02/19/18 08:34 02/19/18 08:34 02/19/18 08:34 02/19/18 08:34 Intake & Output 02/18/18 02/19/18 02/20/18 06:59 06:59 06:59 Intake Total 520 700 150 Output Total 1000 500 Balance 520 -300 -350 Weight 148.7 kg 148.5 kg General appearance: PRESENT: no acute distress, morbidly obese Eye exam: PRESENT: PERRLA Mouth exam: PRESENT: moist Respiratory exam: PRESENT: symmetrical, unlabored Results Laboratory Results: 02/18/18 06:34 02/19/18 05:55 02/19/18 05:55 Sodium 140.3 Potassium 3.9 Chloride 105 Carbon Dioxide 19 L Anion Gap 16 BUN 9 Creatinine 0.81 Est GFR ( Amer) > 60 Est GFR (Non-Af Amer) > 60 Glucose 128 H Calcium 8.8 Total Bilirubin 3.2 H AST 504 H ALT 225 H Alkaline Phosphatase 923 H Total Protein 5.8 L Albumin 2.6 L Lipase 490.0 H Impressions: KUB X-Ray 02/13/18 15:57 IMPRESSION: NO RADIOGRAPHIC EVIDENCE FOR ACUTE ABDOMINAL DISEASE. Abdomen/Pelvis CT 02/13/18 22:03 IMPRESSION: 1. Mild pancreatitis pattern. 2. Small left lower lobar pneumonia/atelectasis. Abdomen Ultrasound 02/18/18 00:00 IMPRESSION: HEPATIC STEATOSIS. OTHERWISE UNREMARKABLE RIGHT UPPER QUADRANT ULTRASOUND STATUS POST CHOLECYSTECTOMY. Forearm X-Ray 02/19/18 00:00 IMPRESSION: NEGATIVE STUDY OF THE LEFT FOREARM. NO RADIOGRAPHIC EVIDENCE OF ACUTE INJURY. Hand X-Ray 02/19/18 00:00 IMPRESSION: Left ulnar wrist region soft tissue swelling. No radiopaque foreign body. No soft tissue gas. No gross fracture Qualifiers - * PATIENT BEING DISCHARGED WITH ANY OF THE FOLLOWING DIAGNOSIS: No Plan Time Spent: Greater than 30 Minutes
[2018-02-19 15:59] VITALS: BP 128/51
== END 2018-02-19 16:34 | disposition home health service (06) | DRG 438 ==
LOC: ER 14:01 → EH 02-14 02:16 → 2S 02-14 09:21
PROVIDERS: ADMIT Internal Medicine; ATTEND Internal Medicine
PROC: 3E0F73Z Introduction of Anti-inflammatory into Respiratory Tract, Via Natural or Artificial Opening (ICD-10-PCS; principal; 2018-02-14)
PROC: 5A09457 Assistance with Respiratory Ventilation, 24-96 Consecutive Hours, Continuous Positive Airway Pressure (ICD-10-PCS; 2018-02-14)
DX: K85.90 Acute pancreatitis without necrosis or infection, unspecified (principal); J69.0 Pneumonitis due to inhalation of food and vomit; J18.1 Lobar pneumonia, unspecified organism; N17.9 Acute kidney failure, unspecified; Z68.43 Body mass index [BMI] 50.0-59.9, adult; I13.0 Hypertensive heart and chronic kidney disease with heart failure and stage 1 through stage 4 chronic kidney disease, or unspecified chronic kidney disease; E66.01 Morbid (severe) obesity due to excess calories; E03.9 Hypothyroidism, unspecified; I25.10 Atherosclerotic heart disease of native coronary artery without angina pectoris; M19.90 Unspecified osteoarthritis, unspecified site; K75.81 Nonalcoholic steatohepatitis (NASH); N18.3 Chronic kidney disease, stage 3 (moderate); E11.22 Type 2 diabetes mellitus with diabetic chronic kidney disease; F17.210 Nicotine dependence, cigarettes, uncomplicated; E78.1 Pure hyperglyceridemia; S31.109D Unspecified open wound of abdominal wall, unspecified quadrant without penetration into peritoneal cavity, subsequent encounter; I25.2 Old myocardial infarction; Z79.4 Long term (current) use of insulin; Z79.899 Other long term (current) drug therapy; Z90.49 Acquired absence of other specified parts of digestive tract; Z90.710 Acquired absence of both cervix and uterus; Z83.3 Family history of diabetes mellitus; Z82.49 Family history of ischemic heart disease and other diseases of the circulatory system
CPT/HCPCS: 36415; 51701; 74018; 74177; 76705; 80053; 80074; 81001; 81025; 82962; 83036; 83690; 83735; 84478; 85025; 94799; 96361; 96374; 96375; 99285; J1170; J1644; J2060; J2405; J2543; J2765; J3490; J7030; S0119; S0164

== ENCOUNTER 2018-02-28 16:34 | Emergency (ER) | payer MEDICAID ==
[2018-02-28] MEDS ORDERED: NORMAL SALINE 1000 ML 1,000 ML IV PRN (17:06)
[2018-02-28] MEDS ORDERED: VANCOMYCIN HCL INJ 1000 MG VIAL IV ONE (17:19)
[2018-02-28] MEDS ORDERED: PIPERACILLIN/TAZOBACTAM 3.375 GM VIAL IV ONE (17:19)
--- NOTE | 2018-02-28 17:31 | ER Document Report ---
ED General - General Chief Complaint: Urinary Problem Stated Complaint: ALTERED MENTAL STATUS Time Seen by Provider: 02/28/18 17:06 Mode of Arrival: Medic Information source: Patient, [facility] Records Notes: 47-year-old female with hypertension, congestive heart failure, coronary artery disease, type 2 diabetes, necrotizing fasciitis, recent pancreatitis presents via EMS from home after sister became concerned with altered mental status. Patient is somnolent but easily aroused and alert and oriented 3. She is answering questions appropriately. She denies any pain. Patient was recently discharged from the hospital after having found to have pancreatitis. Patient has a history of necrotizing fasciitis of the left lower extremity which required a fasciotomy in October 2017 that she denies any leg pain.. TRAVEL OUTSIDE OF THE [place] IN LAST 30 DAYS: No - HPI Onset: Just prior to arrival Onset/Duration: Sudden Quality of pain: No pain Associated symptoms: Shortness of breath. denies: Chest pain, Nonproductive cough, Diarrhea, Fever, Nausea, Vomiting Exacerbated by: Denies Relieved by: Denies Similar symptoms previously: No Recently seen / treated by doctor: Yes - Related Data Allergies/Adverse Reactions: No Known Allergies Allergy (Verified 02/13/18 14:02) Past Medical History - General Information source: Patient, [facility] Records - Social History Smoking Status: Unknown if Ever Smoked Frequency of alcohol use: None Drug Abuse: None Lives with: Spouse/Significant other Family History: DM, Hypertension Patient has suicidal ideation: No Patient has homicidal ideation: No - Past Medical History Cardiac Medical History: Reports: Hx Congestive Heart Failure, Hx Coronary Artery Disease, Hx Heart Attack, Hx Hypertension Endocrine Medical History: Reports: Hx Diabetes Mellitus Type 2, Hx Hypothyroidism Renal/ Medical History: Denies: Hx Peritoneal Dialysis Musculoskeltal Medical History: Reports Hx Arthritis Psychiatric Medical History: Reports: Hx Depression Past Surgical History: Reports: Hx Section, Hx Cholecystectomy, Hx Hysterectomy Review of Systems - Review of Systems Constitutional: denies: Fever, Malaise, Weakness EENT: denies: Blurred vision Cardiovascular: denies: Chest pain, Syncope, Lightheaded Respiratory: denies: Cough, Short of breath Gastrointestinal: denies: Abdominal pain, Diarrhea, Nausea, Vomiting Genitourinary: denies: Dysuria, Flank pain Female Genitourinary: denies: Vaginal discharge Musculoskeletal: Back pain - Chronic back pain Skin: denies: Rash Hematologic/Lymphatic: denies: Easy bleeding Neurological/Psychological: Confusion. denies: Lost consciousness, Headaches -: Yes All other systems reviewed and negative Physical Exam - Vital signs Vitals: Temp 98.5 F 02/28/18 16:46 - Notes Notes: PHYSICAL EXAMINATION: GENERAL: Ill-appearing, somnolent but arousable HEAD: Atraumatic, normocephalic. EYES: Pupils equal round and reactive to light, extraocular movements intact, conjunctiva are normal. ENT: Nares patent, oropharynx clear without exudates. Moist mucous membranes. NECK: Normal range of motion, supple without lymphadenopathy LUNGS: Breath sounds clear to auscultation bilaterally and equal. No wheezes rales or rhonchi. HEART: Regular rate and rhythm without murmurs ABDOMEN: Soft, nontender, nondistended abdomen. No guarding, no rebound. No masses appreciated. Female : deferred Musculoskeletal: Normal range of motion, no pitting or edema. No cyanosis. NEUROLOGICAL: Cranial nerves grossly intact. Normal speech, normal gait. Normal sensory, motor exams PSYCH: Confused SKIN: Left inguinal fasciotomy site with good granulation tissue, no purulent discharge. Course - Re-evaluation Re-evalutation: Laboratory 02/28/18 02/28/18 02/28/18 18:03 18:03 18:03 WBC 6.8 RBC 4.56 Hgb 10.2 L Hct 32.3 L MCV 71 L MCH 22.3 L MCHC 31.5 L RDW 19.4 H Plt Count 266 Total Counted 100 Seg Neutrophils % Not Reportable Seg Neuts % (Manual) 25 L Lymphocytes % Not Reportable Lymphocytes % (Manual) 59 H Monocytes % Not Reportable Monocytes % (Manual) 15 H Eosinophils % Not Reportable Eosinophils % (Manual) 1 Basophils % Not Reportable Basophils % (Manual) 0 Absolute Neutrophils Not Reportable Abs Neuts (Manual) 1.7 Absolute Lymphocytes Not Reportable Abs Lymphs (Manual) 4.0 Absolute Monocytes Not Reportable Abs Monocytes (Manual) 1.0 Absolute Eosinophils Not Reportable Absolute Eos (Manual) 0.1 Absolute Basophils Not Reportable Abs Basophils (Manual) 0.0 Toxic Granulation SLIGHT Platelet Comment ADEQUATE Hypochromasia 1+ Poikilocytosis SLIGHT Anisocytosis 2+ Microcytosis 1+ Target Cells SLIGHT Sodium 127.4 L Potassium 4.1 Chloride 92 L Carbon Dioxide 23 Anion Gap 12 BUN 20 Creatinine 3.93 H Est GFR ( Amer) 15 L Est GFR (Non-Af Amer) 12 L Glucose 152 H Lactic Acid 1.4 Calcium 8.5 Total Bilirubin 10.5 H Direct Bilirubin 10.5 H Neonat Total Bilirubin Not Reportable Neonat Direct Bilirubin Not Reportable Neonat Indirect Bili 0.7 AST 1293 H ALT 257 H Alkaline Phosphatase 1611 H Ammonia Creatine Kinase 128 CK-MB (CK-2) Troponin I NT-Pro-B Natriuret Pep Total Protein 5.9 L Albumin 2.7 L Lipase 475.9 H 02/28/18 02/28/18 02/28/18 18:03 19:47 21:43 WBC RBC Hgb Hct MCV MCH MCHC RDW Plt Count Total Counted Seg Neutrophils % Seg Neuts % (Manual) Lymphocytes % Lymphocytes % (Manual) Monocytes % Monocytes % (Manual) Eosinophils % Eosinophils % (Manual) Basophils % Basophils % (Manual) Absolute Neutrophils Abs Neuts (Manual) Absolute Lymphocytes Abs Lymphs (Manual) Absolute Monocytes Abs Monocytes (Manual) Absolute Eosinophils Absolute Eos (Manual) Absolute Basophils Abs Basophils (Manual) Toxic Granulation Platelet Comment Hypochromasia Poikilocytosis Anisocytosis Microcytosis Target Cells Sodium Potassium Chloride Carbon Dioxide Anion Gap BUN Creatinine Est GFR ( Amer) Est GFR (Non-Af Amer) Glucose Lactic Acid Calcium Total Bilirubin Direct Bilirubin Neonat Total Bilirubin Neonat Direct Bilirubin Neonat Indirect Bili AST ALT Alkaline Phosphatase Ammonia < 8.7 L Creatine Kinase 129 CK-MB (CK-2) 1.44 Troponin I 0.061 NT-Pro-B Natriuret Pep 13142 H Total Protein Albumin Lipase 02/28/18 21:43 WBC RBC Hgb Hct MCV MCH MCHC RDW Plt Count Total Counted Seg Neutrophils % Seg Neuts % (Manual) Lymphocytes % Lymphocytes % (Manual) Monocytes % Monocytes % (Manual) Eosinophils % Eosinophils % (Manual) Basophils % Basophils % (Manual) Absolute Neutrophils Abs Neuts (Manual) Absolute Lymphocytes Abs Lymphs (Manual) Absolute Monocytes Abs Monocytes (Manual) Absolute Eosinophils Absolute Eos (Manual) Absolute Basophils Abs Basophils (Manual) Toxic Granulation Platelet Comment Hypochromasia Poikilocytosis Anisocytosis Microcytosis Target Cells Sodium Potassium Chloride Carbon Dioxide Anion Gap BUN Creatinine Est GFR ( Amer) Est GFR (Non-Af Amer) Glucose Lactic Acid Calcium Total Bilirubin Direct Bilirubin Neonat Total Bilirubin Neonat Direct Bilirubin Neonat Indirect Bili AST ALT Alkaline Phosphatase Ammonia Creatine Kinase CK-MB (CK-2) 1.26 Troponin I 0.069 NT-Pro-B Natriuret Pep Total Protein Albumin Lipase Chest X-Ray 02/28/18 17:19 IMPRESSION: Left lower lobe pneumonia. Abdomen/Pelvis CT 02/28/18 17:20 IMPRESSION: 1. PROBABLE MILD PANCREATITIS. NO ABNORMAL FLUID COLLECTIONS. 2. PATCHY OPACITIES IN THE LUNG BASES, ATELECTASIS AND/OR PNEUMONIA. 3. NO OTHER SIGNIFICANT OR ACUTE PROCESS IN THE ABDOMEN OR PELVIS. Head CT 02/28/18 18:45 IMPRESSION: NORMAL BRAIN CT WITHOUT CONTRAST. EVIDENCE OF ACUTE STROKE: NO. 47-year-old female with hypertension, congestive heart failure, coronary artery disease, type 2 diabetes, necrotizing fasciitis, recent pancreatitis presents via EMS from home after sister became concerned with altered mental status. Patient is somnolent but easily aroused and alert and oriented 3. She is answering questions appropriately. She denies any pain. Patient was recently discharged from the hospital after having found to have pancreatitis. Patient has a history of necrotizing fasciitis of the left lower extremity which required a fasciotomy in October 2017 that she denies any leg pain. On arrival patient is markedly hypotensive but afebrile. She appears toxic. She does not appear dehydrated. Fluid resuscitation initiated. Patient received vancomycin and Zosyn. Central line was placed in the left IJ. Patient's blood pressure did respond to fluids. CBC shows no leukocytosis does show mild anemia. Patient has new renal failure, new liver failure. CT of the head was obtained and showed no acute process. CT of the abdomen and pelvis showed mild pancreatitis and patchy opacities in the left lung field. Chest x-ray is significant for a new left lobe pneumonia. And has had intermittent episodes of confusion. Patient has multiorgan failure and will likely require an ERCP. No GI available here. 02/28/18 21:[address] Jesús lewis who is requesting VQ scan. 02/28/18 22:37 02/28/18 23:[address] Arreola at [facility] who recommends adding on a TSH, Tylenol level. He has accepted the patient to the ICU. Patient will be transferred rapidly. 02/28/18 23:32 - Vital Signs Vital signs: Temp Pulse Resp BP Pulse Ox 98.5 F 19 99/56 L 96 02/28/18 16:46 02/28/18 22:38 02/28/18 22:36 02/28/18 22:36 - Laboratory Result Diagrams: 02/28/18 18:03 02/28/18 18:03 Laboratory results interpreted by me: 02/28/18 02/28/18 02/28/18 18:03 18:03 18:03 Hgb 10.2 L Hct 32.3 L MCV 71 L MCH 22.3 L MCHC 31.5 L RDW 19.4 H Seg Neuts % (Manual) 25 L Lymphocytes % (Manual) 59 H Monocytes % (Manual) 15 H Sodium 127.4 L Chloride 92 L Creatinine 3.93 H Est GFR ( Amer) 15 L Est GFR (Non-Af Amer) 12 L Glucose 152 H Total Bilirubin 10.5 H Direct Bilirubin 10.5 H AST 1293 H ALT 257 H Alkaline Phosphatase 1611 H Ammonia NT-Pro-B Natriuret Pep 88372 H Total Protein 5.9 L Albumin 2.7 L Lipase 475.9 H Salicylates Acetaminophen 02/28/18 02/28/18 18:03 19:47 Hgb Hct MCV MCH MCHC RDW Seg Neuts % (Manual) Lymphocytes % (Manual) Monocytes % (Manual) Sodium Chloride Creatinine Est GFR ( Amer) Est GFR (Non-Af Amer) Glucose Total Bilirubin Direct Bilirubin AST ALT Alkaline Phosphatase Ammonia < 8.7 L NT-Pro-B Natriuret Pep Total Protein Albumin Lipase Salicylates < 1.0 L Acetaminophen < 10 L - Diagnostic Test Radiology reviewed: Image reviewed, Reports reviewed - EKG Interpretation by Me EKG shows normal: Sinus rhythm Rate: Normal Rhythm: NSR Critical Care Note - Critical Care Note Total time excluding time spent on procedures (mins): 60 - minutes of critical care time spent in direct contact evaluating and reevaluating the patient, treating symptoms, reviewing labs and studies and speaking with family and consultants excluding any procedures Discharge - Discharge Clinical Impression: Transaminitis, Multiorgan failure Pancreatitis Qualifiers: Chronicity: chronic Pancreatitis type: unspecified pancreatitis type Qualified Code(s): K86.1 - Other chronic pancreatitis Acute renal failure Qualifiers: Acute renal failure type: unspecified Qualified Code(s): N17.9 - Acute kidney failure, unspecified PNA (pneumonia) Qualifiers: Pneumonia type: due to unspecified organism Laterality: left Lung location: unspecified part of lung Qualified Code(s): J18.9 - Pneumonia, unspecified organism Hypotension Qualifiers: Hypotension type: unspecified hypotension type Qualified Code(s): I95.9 - Hypotension, unspecified Altered mental status Qualifiers: Altered mental status type: unspecified Qualified Code(s): R41.82 - Altered mental status, unspecified Sepsis Qualifiers: Sepsis type: sepsis due to unspecified organism Qualified Code(s): A41.9 - Sepsis, unspecified organism Condition: Poor Disposition: [facility]ICAL [facility]ESS [facility]OSPITAL Referrals: MARIBEL SAN DO [Primary Care Provider] - Follow up as needed
[2018-02-28] MEDS: NORMAL SALINE 1000 ML 1,000 ML IV PRN ×4 (18:00→23:52)
--- NOTE | 2018-02-28 18:16 | Operative Report ---
Nonrecallable Operative Report DATE OF SURGERY: 02/28/18 PREOPERATIVE DIAGNOSIS: 1. Sepsis. 2. phlebosclerosis. 3. Hypotension POSTOPERATIVE DIAGNOSIS: Same as above OPERATION: 1. Ultrasound-guided central venous puncture. 2. Left internal jugular vein central line placement. SURGEON: FER TAYLOR ANESTHESIA: Local TISSUE REMOVED OR ALTERED: None COMPLICATIONS: None apparent ESTIMATED BLOOD LOSS: Minimal PROCEDURE: Implants: Left internal jugular vein central line. After informed consent was obtained from the patient's sister, she was laid in the Trendelenburg position. The area of the left neck was prepped and draped in a normal sterile fashion. An ultrasound was used to identify the left internal jugular vein. It was compressible with normal flow. Under direct ultrasonic guidance, the IJ was accessed using the supplied needle. Dark venous , nonpulsatile blood was returned in the syringe. The wire was inserted into the lumen of the vein easily. The wire was confirmed to be within the vein using ultrasound. Once this was confirmed, the catheter was slid over the wire using a modified Seldinger technique. The catheter was then aspirated and flushed. The catheter returned dark venous, nonpulsatile blood 3. The catheter was sutured to the skin. A dressing was fashioned, and the procedure was concluded. All sponge, instrument, and needle counts were correct 2. Condition: Critical.
[2018-02-28 18:29] LABS: HEMATOCRIT 32.3 % (36.0-47.0); HEMOGLOBIN 10.2 g/dL (12.0-15.5); MEAN CORPUSCULAR HEMOGLOBIN 22.3 pg (27.0-33.4); MEAN CORPUSCULAR HGB CONC 31.5 g/dL (32.0-36.0); MEAN CORPUSCULAR VOLUME 71 fl (80-97); PLATELET COUNT 266 10^3/uL (150-450); RED BLOOD COUNT 4.56 10^6/uL (3.72-5.28); RED CELL DISTRIBUTION WIDTH 19.4 % (11.5-14.0); WHITE BLOOD COUNT 6.8 10^3/uL (4.0-10.5)
--- NOTE | 2018-02-28 18:41 | EKG REPORT ---
SEVERITY:- DEFECTIVE ECG - SINUS RHYTHM PROBABLE LEFT ATRIAL ABNORMALITY ANTERIOR INFARCT, OLD PROLONGED QT INTERVAL : Confirmed by: Vasquez Jefferson MD 28-Feb-2018 18:41:16
[2018-02-28 18:42] LABS: ALANINE AMINOTRANSFERASE 257 U/L (9-52); ALBUMIN 2.7 g/dL (3.5-5.0); ANION GAP 12 (5-19); BILIRUBIN,TOTAL 10.5 mg/dL (0.2-1.3); BLOOD UREA NITROGEN 20 mg/dL (7-20); CALCIUM 8.5 mg/dL (8.4-10.2); CARBON DIOXIDE 23 mmol/L (22-30); CHLORIDE 92 mmol/L (98-107); CREATINE KINASE 128 U/L (30-135); GLUCOSE 152 mg/dL (75-110); LIPASE 475.9 U/L (23-300); POTASSIUM 4.1 mmol/L (3.6-5.0); SODIUM 127.4 mmol/L (137-145); TOTAL PROTEIN 5.9 g/dL (6.3-8.2)
[2018-02-28 18:50] LABS: ABSOLUTE NEUTROPHILS# (MANUAL) 1.7 10^3/uL (1.7-8.2); ALKALINE PHOSPHATASE 1611 U/L (38-126); ASPARTATE AMINO TRANSFERASE 1293 U/L (14-36); BASOPHILS % (MANUAL) 0 % (0-2); EOSINOPHILS % (MANUAL) 1 % (0-6); LYMPHOCYTES % (MANUAL) 59 % (13-45); MONOCYTES % (MANUAL) 15 % (3-13); SEGMENTED NEUTROPHILS % (MAN) 25 % (42-78); TOTAL CELLS COUNTED 100
[2018-02-28 18:51] LABS: TOXIC GRANULATION SLIGHT
[2018-02-28 18:52] LABS: ANISOCYTOSIS 2+; HYPOCHROMASIA 1+; PLATELET COMMENT ADEQUATE; POIKILOCYTOSIS SLIGHT; TARGET CELLS SLIGHT
[2018-02-28 18:53] LABS: CREATINE KINASE MB 1.44 ng/mL (<4.55)
[2018-02-28 18:58] LABS: TROPONIN I 0.061 ng/mL
--- NOTE | 2018-02-28 19:08 | RADIOLOGY REPORT (SQ) ---
EXAM DESCRIPTION: CHEST SINGLE VIEW COMPLETED DATE/TIME: 02/28/2018 6:38 pm REASON FOR STUDY: ams COMPARISON: 10/27/2017 EXAM PARAMETERS: NUMBER OF VIEWS: One view. TECHNIQUE: Single frontal radiographic view of the chest acquired. RADIATION DOSE: NA LIMITATIONS: None. FINDINGS: LUNGS AND PLEURA: Low lung volumes. Patchy opacification the left base. MEDIASTINUM AND HILAR STRUCTURES: No masses. Contour normal. HEART AND VASCULAR STRUCTURES: Heart normal in size. Normal vasculature. BONES: No acute findings. HARDWARE: Left internal jugular catheter has its tip in the superior vena cava. OTHER: No other significant finding. IMPRESSION: Left lower lobe pneumonia. TECHNICAL DOCUMENTATION: JOB ID: [id number] [employer]- All Rights Reserved Reading location - IP/workstation name: [email or web address]
--- NOTE | 2018-02-28 20:58 | RADIOLOGY REPORT (SQ) ---
EXAM DESCRIPTION: CT HEAD WITHOUT COMPLETED DATE/TIME: 02/28/2018 8:34 pm REASON FOR STUDY: ams COMPARISON: None. TECHNIQUE: Axial images acquired through the brain without intravenous contrast. Images reviewed wi th bone, brain and subdural windows. Additional sagittal and coronal reconstructions were generated. Images stored on PACS. All CT scanners at this facility use dose modulation, iterative reconstruction, and/or weight based d osing when appropriate to reduce radiation dose to as low as reasonably achievable (ALARA). [facility]: Dose Right [facility]: CareDose [facility]: Dose Right [facility]: Teradose 4D [facility]: [employer] RADIATION DOSE: CT Rad equipment meets quality standard of care and radiation dose reduction techniq ues were employed. CTDIvol: 53.2 mGy. DLP: 911 mGy-cm. mGy. LIMITATIONS: None. FINDINGS: VENTRICLES: Normal size and contour. CEREBRUM: No masses. No hemorrhage. No midline shift. No evidence for acute infarction. Normal gra y/white matter differentiation. No areas of low density in the white matter. CEREBELLUM: No masses. No hemorrhage. No alteration of density. No evidence for acute infarction. EXTRAAXIAL SPACES: No fluid collections. No masses. ORBITS AND GLOBE: No intra- or extraconal masses. Normal contour of globe without masses. CALVARIUM: No fracture. PARANASAL SINUSES: No fluid or mucosal thickening. SOFT TISSUES: No mass or hematoma. OTHER: No other significant finding. IMPRESSION: NORMAL BRAIN CT WITHOUT CONTRAST. EVIDENCE OF ACUTE STROKE: NO. COMMENT: Quality ID # 436: Final reports with documentation of one or more dose reduction techniques (e.g., Automated exposure control, adjustment of the mA and/or kV according to patient size, use of iterative reconstruction technique) TECHNICAL DOCUMENTATION: JOB ID: [id number] [employer]- All Rights Reserved Reading location - IP/workstation name: [email or web address]
--- NOTE | 2018-02-28 21:28 | RADIOLOGY REPORT (SQ) ---
EXAM DESCRIPTION: CT ABD/PELVIS NO ORAL OR IV COMPLETED DATE/TIME: 02/28/2018 8:34 pm REASON FOR STUDY: History of necrotizing fasciitis,AMS, pancreatits COMPARISON: 02/14/2018. TECHNIQUE: CT scan of the abdomen and pelvis performed without intravenous or oral contrast. Images reviewed with lung, soft tissue, and bone windows. Reconstructed coronal and sagittal MPR images revi ewed. All images stored on PACS. All CT scanners at this facility use dose modulation, iterative reconstruction, and/or weight based d osing when appropriate to reduce radiation dose to as low as reasonably achievable (ALARA). [facility]: Dose Right [facility]: CareDose [facility]: Dose Right [facility]: Teradose 4D [facility]: [employer] RADIATION DOSE: CT Rad equipment meets quality standard of care and radiation dose reduction techniq ues were employed. CTDIvol: 20.4 mGy. DLP: 1133 mGy-cm.mGy. LIMITATIONS: None. FINDINGS: LOWER CHEST: Patchy opacities in the lung bases. NON-CONTRASTED LIVER, SPLEEN, ADRENALS: Evaluation limited by lack of IV contrast. No identified sign ificant masses. PANCREAS: No masses. Mild peripancreatic inflammatory changes. No fluid collections. GALLBLADDER: Surgically absent. RIGHT KIDNEY AND URETER: No suspicious masses. Assessment limited by lack of IV contrast. No signif icant calcifications. No hydronephrosis or hydroureter. LEFT KIDNEY AND URETER: No suspicious masses. Assessment limited by lack of IV contrast. No signifi cant calcifications. No hydronephrosis or hydroureter. AORTA AND RETROPERITONEUM: No aneurysm. No retroperitoneal masses or adenopathy. BOWEL AND PERITONEAL CAVITY: No obvious masses or inflammatory changes. No free fluid. APPENDIX: Normal. PELVIS, BLADDER, AND ABDOMINAL WALL:No abnormal masses. No free fluid. Bladder normal. BONES: No significant findings. OTHER: No other significant finding. IMPRESSION: 1. PROBABLE MILD PANCREATITIS. NO ABNORMAL FLUID COLLECTIONS. 2. PATCHY OPACITIES IN THE LUNG BASES, ATELECTASIS AND/OR PNEUMONIA. 3. NO OTHER SIGNIFICANT OR ACUTE PROCESS IN THE ABDOMEN OR PELVIS. COMMENT: Quality ID # [id number]: Final reports with documentation of one or more dose reduction techniques (e.g., Automated exposure control, adjustment of the mA and/or kV according to patient size, use of iterative reconstruction technique) TECHNICAL DOCUMENTATION: JOB ID: [id number] [employer]- All Rights Reserved Reading location - IP/workstation name: [email or web address]
[2018-02-28 22:23] LABS: CREATINE KINASE MB 1.26 ng/mL (<4.55); TROPONIN I 0.069 ng/mL
[2018-02-28 23:22] LABS: ACETAMINOPHEN < 10 ug/mL (10-30); SALICYLATE < 1.0 mg/dL (2.0-20.0)
--- NOTE | 2018-03-01 00:19 | RADIOLOGY REPORT (SQ) ---
EXAM DESCRIPTION: NM LUNG VENTILATION PERFUSION CLINICAL HISTORY: 47 years, Female, ams / RULE OUT PE left lower lobar pneumonia COMPARISON: CR, 02/28/18 RADIONUCLIDE AND DOSE: 31.8mCi DTPA, 5.28mCi Tc99m MAA LIMITATIONS: None. FINDINGS: Normal perfusion and ventilation; no evidence of pulmonary embolus. IMPRESSION: Normal ventilation-perfusion scan.
[2018-03-01 01:05] VITALS: BP 96/70
[2018-03-02 14:58] LABS: BILIRUBIN,DIRECT 9.9 mg/dL (0.0-0.4)
== END 2018-03-01 01:39 | disposition short-term general hospital (02) ==
LOC: ER 16:34
DX: A41.9 Sepsis, unspecified organism (principal); K86.1 Other chronic pancreatitis; N17.9 Acute kidney failure, unspecified; J18.9 Pneumonia, unspecified organism; I95.9 Hypotension, unspecified; I87.8 Other specified disorders of veins; R41.82 Altered mental status, unspecified; R39.198 Other difficulties with micturition; I10 Essential (primary) hypertension; I25.10 Atherosclerotic heart disease of native coronary artery without angina pectoris; E11.9 Type 2 diabetes mellitus without complications; R06.02 Shortness of breath; I50.9 Heart failure, unspecified
CPT/HCPCS: 93005; 99291; 96361; 96365; 96366; 96367; 36415; 87040; 87070; 87205; 82553; 82140; 82550; 83605; 83690; 80307 ×2; 84443; 85025; 87075; 87077; 80053; 84484; 87186; 83880; 71045; 78582; 70450; 74176; 93010; C1751; A9540; A9567; J7030; J3370; J2543; Q9969